=== PATIENT | female | born 1950 ===

== ENCOUNTER 2017-03-06 12:44 | Inpatient (IN) | payer OTHER ==
[2017-03-06] MEDS ORDERED: ALTEPLASE 2 MG VIAL IVP PRN (16:32)
[2017-03-06] MEDS ORDERED: ONDANSETRON 4 MG/2 ML VIAL IV PRN (17:21)
[2017-03-06] MEDS ORDERED: HYDROCODONE/APAP 5/325 TAB PO PRN (17:21)
[2017-03-06] MEDS ORDERED: BISACODYL 10 MG SUPP PR PRN (17:48)
[2017-03-06] MEDS ORDERED: SENNOSIDES 1 TAB PO ONE (17:48)
--- NOTE | 2017-03-06 17:56 | PDOREHIP ---
Admission [facility] - Active Diagnoses Comorbidities and Co-existing Conditions at Admission: 82904. None of the Above - Skin Conditions Unhealed Pressure Ulcer (1 or more/Stage 1 or >)-Admission: 0. No
[2017-03-06] MEDS: ENOXAPARIN 40 MG/0.4 ML SYR SC SCH (18:25)
--- NOTE | 2017-03-06 19:01 | GHP ---
[f rep st] HISTORY AND PHYSICAL POST ADMISSION PHYSICIAN EVALUATION AND REHABILITATION TREATMENT PLAN DATE OF ADMISSION: 03/06/2017 DATE OF EVALUATION: March 06, 2017 TIME OF EVALUATION: 1715 hours REFERRING FACILITY: [facility] IMPAIRMENT GROUP: 1.2. DATE OF ONSET: 02/23/2017. REFERRING PHYSICIAN: Dr. Nicholson. CONSULTATIONS: Neurology, Cardiology and possibly Neurosurgery, as well as Pulmonary and Critical Care. REHABLITATION DIAGNOSIS: Cerebrovascular accident. ETIOLOGIC DIAGNOSIS: Right body involvement, left brain. HISTORY OF PRESENT ILLNESS: The patient came to the Emergency Department at [facility] with right-sided weakness. 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 She was treated with IV tPA thrombolysis, after which her right leg regained some movement. The following morning, however, she was more lethargic and had lost the movement she had regained. Further brain imaging revealed hemorrhagic conversions in the left basal ganglia. She had extensive testing regarding the possible etiology of the stroke. CT angiogram was negative for cerebrovascular lesions, and showed no target for revascularization. EKG showed normal sinus rhythm. She had T-wave inversions in the anterior leads. Echocardiogram showed a patent foramen ovale and pulmonary hypertension. Doppler ultrasound study of the veins of the lower extremity did not show deep venous thromboses. A venous CT angiogram of the abdomen was done, which showed no thromboses. However, it did reveal pulmonary emboli bilaterally in the lower lungs, for which an IVC filter was placed. She was followed with serial head CTs, and had no worsening of hemorrhage, and surgery was not indicated. She was begun on atorvastatin and aspirin, and continued on her home dose of lisinopril for history of hypertension. She was participating in physical, occupational, and speech therapies, and stable for transfer to inpatient rehabilitation. OTHER STUDIES AND LABS IN THE HOSPITAL: She had an elevated troponin as high as 0.086, which improved subsequently. CBC done on 03/04/2017 was normal. Metabolic profile revealed normal renal function and electrolytes, but for a low creatinine of 0.53. Albumin was mildly low at 3.0. Abdominal imaging also showed biliary sludge, but there was no elevation of liver enzymes and no abdominal symptoms. PRECAUTIONS: She is a fall risk, and she has aspiration precautions. ACTIVE COMORBIDITIES: She has the tier 3 comorbidities of hemiparesis and morbid obesity. PAST MEDICAL HISTORY: 1. Hypertension. 2. Recent dental extractions of 12 maxillary teeth in preparation for dentures. PRE-HOSPITAL MEDICATIONS: She was taking lisinopril 20 mg per day. ADMISSION MEDICATIONS: 1. Aspirin 81 mg p.o. daily. 2. Atorvastatin 40 mg p.o. at bedtime. 3. Hydrocodone 1 tab p.o. q.6 hours p.r.n. 4. Lisinopril 20 mg p.o. daily. 5. Magnesium oxide 400 mg p.o. daily. 6. Ondansetron 4 mg IV q.4 hours p.r.n. ALLERGIES: Listed to penicillin and to sulfonamide antibiotics. FAMILY HISTORY: Noncontributory. PSYCHOSOCIAL HISTORY: She is a . 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 She has 1 daughter with whom she lives, and there is a 14 -year-old granddaughter in the house as well. She is a nonsmoker. There are no steps to enter the house, and she can live on a single level. REVIEW OF SYSTEMS: She denies pain, chest pain, dyspnea, cough, fevers, chills , recent weight loss or weight gain, nausea or vomiting. She does endorse constipation. She denies dysuria or urinary frequency. She denies loss of sensation. She has weakness in the right upper and lower extremities. She denies joint pain or joint swelling. She denies skin rash or skin breakdown, and otherwise a 10-point review of systems is negative. Her daughter reports that prior to her stroke she was walking 3 - 5 miles every day. She snores, and daughter has noted apneic events. PHYSICAL EXAM: VITAL SIGNS: Blood pressure is 114/67, heart rate is 70, respiratory rate is 16, oxygen saturation is 98% on 1 L, temperature is 36.4 degrees centigrade, her weight is 102.7 kg for a body mass index of 35.5. GENERAL: This is an obese woman, appears her chronologic age, lying in bed, cooperative, and in no acute distress. HEENT: Extraocular movements are intact. Pupils are equal, round, and reactive to light. Mucous membranes are mildly dry. She has a crowded airway Mallampati class 4. She has missing teeth in the left maxilla. There were no mucosal lesions noted. NECK: Supple. HEART: There is a regular rate and rhythm with no murmurs, rubs, or gallops. LUNGS: Clear to auscultation bilaterally. ABDOMEN: Soft, nontender , and nondistended with normoactive bowel sounds. No hepatosplenomegaly, though the exam is somewhat compromised by obesity. EXTREMITIES: There is no cyanosis, clubbing, or edema. Radial and dorsalis pedis pulses are 2+ bilaterally. NEUROLOGIC: She is alert and oriented to her general situation. She is not oriented to the date, month, or year. When reoriented, she does not maintain orientation after several minutes. Cranial nerves 2-12 are grossly intact, but for a left facial droop. Tongue protrudes midline. She tracks bilaterally with her eyes. There is flaccid paralysis of the right upper extremity. She has 2/5 strength at the right hip flexor, 3 to 4/5 strength at the right hamstring and quadriceps, 4/5 strength at the extensor hallucis longus. Her left upper and lower extremities have normal strength. Sensation is intact bilaterally to light touch, and there is no extinction to double simultaneous stimulation. Deep tendon reflexes are 2+ bilaterally at the biceps and patella, and are hypoactive at the Achilles tendons bilaterally. Plantar reflex is upgoing on the right and downgoing on the left. SKIN: There are no decubitus ulcers. Skin is warm and dry. CURRENT LEVEL OF FUNCTION PER THE PRE-ADMISSION SCREEN: Regarding diet, feeding , and swallowing, she was noted to be on a dysphagia 2 diet, and required set up and supervision. Regarding grooming, she required minimal assistance. For bathing, dressing, and toileting she needed assistance. For bed mobility, she required minimal assistance. For transfers, she required moderate assistance with a front-wheeled walker and 2 person assist. Balance was poor. Endurance was poor. She was noted to have dysarthria and aphasia. IMPRESSION: The patient is a 66-year-old woman, who suffered a cerebrovascular accident on 02/23/2015 with weakness of the right upper and lower extremities. She had tPA thrombolysis with improvement. However, she had worsening the next morning, and on brain imaging was found to have hemorrhagic transformation. Search for the etiology of the stroke revealed a patent foramen ovale and bilateral pulmonary emboli. There was no deep venous thrombosis found in the lower extremities or pelvis. However, an IVC filter was placed nonetheless. She is appropriate for inpatient rehabilitation with needs for physical, occupational, and speech therapy to optimize her mobility, activities of daily living, swallowing, and cognition. She needs nursing care regarding fall risk, skin integrity, bowel and bladder, medication administration, and medication education. She requires the care of a physician regarding risk for neurologic deterioration and comorbidities including pulmonary emboli, risk for deep venous thrombosis, pulmonary hypertension, and infection risk. Her goal is to complete rehabilitation and then to return home with her family. For a safe discharge, she will need to achieve modified independence to supervision with mobility ADLs, cognition, and swallowing. There is hope she will be able to accomplish medication management, or certainly will have education regarding medication management for her and her family, and neurologic education for her and her family. She will receive therapy with physical therapy, occupational therapy, and speech and language pathology on a modified schedule, 45-60 minutes per day for each discipline on 5-7 days of the week. Her expected duration of stay is 7-21 days. It is anticipated that upon discharge home she will continue to benefit from home health services including speech and language pathology, occupational therapy, and physical therapy. ASSESSMENT AND PLAN: 1. Left basal ganglia cerebrovascular accident with dysphagia, and right upper and lower extremity weakness. Physical and occupational therapies to optimize mobility and activities of daily living. 2. Dysphagia to be assessed and treated per speech and language pathology, along with evaluation regarding cognition. 3. Bilateral pulmonary emboli. She is 11 days out from her hemorrhagic transformation, and would benefit from anticoagulation. This was discussed with neurologist, Dr. Deluca, who was in support of providing anticoagulation. Discussed with her daughter, who remain somewhat cautious. Will initiate enoxaparin at a preventive dose, and will have further discussion regarding indications for full anticoagulation and plan for transition to oral anticoagulation prior to her discharge. She will be monitored for any signs of cardiorespiratory compromise or recurrent thromboses. 4. Hypertension, appears to be adequately controlled on lisinopril, which will be continued. 5. Dyslipidemia. Continue atorvastatin. 6. Constipation. She will be treated with a bowel protocol. 7. Peripherally inserted central catheter line is in place. It will be left in place until it is clear that she is able to take adequate hydration. 8. Pulmonary hypertension, appears to be compensated. Continue to monitor cardiorespiratory status. 9. Likely sleep apnea with crowded airway and history of snoring, and witnessed apneas. Daughter reports that she needs to sleep propped up, and this will be done. She was advised to have a sleep study after discharge, and can consider CPAP or other treatments. 10. Likely coronary artery disease, with lateral T-wave inversions on EKG at [facility], and an elevated troponin. She has been prescribed aspirin, which will be continued along with blood pressure and lipid medications. 11. Loss of teeth due to recent dental extraction. It is likely that she will continue to need a soft diet even as her swallowing improves. 12. Obesity. She will have a dietary consult. It would be in her best interest to be able to lose weight. 13. Code status: She is full code. /[id number]/MODL MTDD
[2017-03-06] MEDS: ATORVASTATIN CALCIUM 40 MG TAB PO SCH (20:07)
[2017-03-07] MEDS: ENOXAPARIN 40 MG/0.4 ML SYR SC SCH (08:10)
[2017-03-07] MEDS: ASPIRIN EC 81 MG TAB PO SCH (08:14)
[2017-03-07] MEDS: MAGNESIUM OXIDE 400 MG TAB PO SCH (08:14)
[2017-03-07] MEDS: POLYETHYLENE GLYCOL 3350 17 GM PKT PO SCH (08:14)
[2017-03-07] MEDS: LISINOPRIL 20 MG TAB PO SCH (08:19)
[2017-03-07] MEDS ORDERED: ENOXAPARIN 40 MG/0.4 ML SYR SC SCH (09:00)
--- NOTE | 2017-03-07 09:04 | SOAPPROG ---
SOAP Progress Note Assessment/Plan: Assessment: * Left basal ganglia cerebrovascular accident with dysphagia, and right upper and lower extremity weakness. Physical and occupational therapies to optimize mobility and activities of daily living. * Dysphagia to be assessed and treated per speech and language pathology, along with evaluation regarding cognition. * Cognitive impairment to be assessed and treated per MANAGER BOOK. * Bilateral pulmonary emboli. She is 11 days out from her hemorrhagic transformation, and would benefit from anticoagulation. This was discussed with neurologist, Dr. Deluca, who was in support of providing anticoagulation. Discussed with her daughter, who remain somewhat cautious. Will initiate enoxaparin at a preventive dose, and will have further discussion regarding indications for full anticoagulation. AHA guideline recommends full anticoagulation if AFib at 2 weeks s/p hemorrhagic transformation, which would be 03/09/17. Will d/w daughter further. Start DOAC if possible. She will be monitored for any signs of cardiorespiratory compromise or recurrent thromboses. * Presence of Lucio catheter, unclear indication. D/C today 03/07/17 and initiate rehabilitation bladder program. Chronic/stable conditions: * Hypertension, appears to be adequately controlled on lisinopril, which will be continued. * Dyslipidemia. Continue atorvastatin. * Constipation. Continue bowel protocol. * Peripherally inserted central catheter line is in place. It will be left in place until it is clear that she is able to take adequate hydration. * Pulmonary hypertension, appears to be compensated. Continue to monitor cardiorespiratory status. * Likely sleep apnea with crowded airway and history of snoring, and witnessed apneas. Daughter reports that she needs to sleep propped up, and this will be done. She was advised to have a sleep study after discharge, and can consider CPAP or other treatments. * Likely coronary artery disease, with lateral T-wave inversions on EKG at [facility], and an elevated troponin. She has been prescribed aspirin, which will be continued along with blood pressure and lipid medications. Will get copy of [facility] EKG. * Loss of teeth due to recent dental extraction. It is likely that she will continue to need a soft diet even as her swallowing improves. * Obesity. She will have a dietary consult. It would be in her best interest to be able to lose weight. 03/07/17 14:05 Subjective: Says she had a difficult night but can't elaborate. Currently w/out complaint. Denies pain, cough, dyspnea, f/c. Objective: Vital Signs Temp Pulse Resp BP Pulse Ox 36.8 C 71 17 115/68 93 03/07/17 05:42 03/07/17 05:42 03/07/17 05:42 03/07/17 08:19 03/07/17 05:42 03/06/17 03/07/17 03/08/17 05:59 05:59 05:59 Intake Total 170 Output Total 650 Balance -480 Physical Exam - Physical Exam General Appearance: WD/WN, alert, no apparent distress, obese Respiratory: normal breath sounds, No crackles, No rhonchi, No wheezing Cardiac/Chest: regular rate, rhythm, No edema Skin: normal color, warm/dry Neuro/Psych: alert, normal mood/affect, oriented x 3, motor weakness (RUE with minimal shoulder shrug, o/w flaccid paralysis. ) ICD10 Worksheet Patient Problems: Problems Problem Status Onset CVA (cerebral vascular accident) Acute
[2017-03-07] MEDS: SENNOSIDES 1 TAB PO SCH ×2 (12:46→20:20)
[2017-03-07] MEDS: ATORVASTATIN CALCIUM 40 MG TAB PO SCH (20:20)
[2017-03-08] MEDS: ENOXAPARIN 40 MG/0.4 ML SYR SC SCH (09:33)
[2017-03-08 09:37] LABS: COLOR AMBER; LEUKOCYTE ESTERASE,URINE NEGATIVE (NEGATIVE); NITRITE,URINE NEGATIVE (NEGATIVE)
[2017-03-08 09:39] LABS: MUCUS 4+ /lpf (NONE-1+)
[2017-03-08 09:52] LABS: ANION GAP 11 mEq/L (8-16); CALCIUM 9.5 mg/dL (8.5-10.4); CARBON DIOXIDE 29 mEq/l (22-31); CHLORIDE 98 mEq/L (97-110); CREATININE 0.5 mg/dL (0.6-1.0); GLOMERULAR FILTRATION RATE > 60; GLUCOSE 104 mg/dL (70-100); POTASSIUM 3.9 mEq/L (3.5-5.2); SODIUM 138 mEq/L (134-144)
[2017-03-08] MEDS: POLYETHYLENE GLYCOL 3350 17 GM PKT PO SCH (10:42)
[2017-03-08] MEDS: MAGNESIUM OXIDE 400 MG TAB PO SCH (10:43)
[2017-03-08] MEDS: ASPIRIN EC 81 MG TAB PO SCH (10:43)
[2017-03-08] MEDS: SENNOSIDES 1 TAB PO SCH ×2 (10:43→21:16)
[2017-03-08] MEDS: LISINOPRIL 20 MG TAB PO SCH (10:48)
--- NOTE | 2017-03-08 12:29 | SOAPPROG ---
SOAP Progress Note Assessment/Plan: Assessment: * Left basal ganglia cerebrovascular accident with dysphagia, and right upper and lower extremity weakness. Physical and occupational therapies to optimize mobility and activities of daily living. * Dysphagia to be assessed and treated per speech and language pathology, along with evaluation regarding cognition. * Cognitive impairment to be assessed and treated per CONTINUOUS IMPROVEMENT FACILITATOR. * Bilateral pulmonary emboli. On admission 03/06/17 she was 11 days out from her hemorrhagic transformation, and would benefit from anticoagulation. This was discussed with neurologist, Dr. Fine, who was in support of providing anticoagulation. Discussed with her daughter, who remains somewhat cautious. Will initiate enoxaparin at a preventive dose, and will have further discussion regarding indications for full anticoagulation. AHA guideline recommends full anticoagulation if AFib at 2 weeks s/p hemorrhagic transformation, which would be 03/09/17. Will d/w daughter further. Start DOAC if possible. She will be monitored for any signs of cardiorespiratory compromise or recurrent thromboses. * Presence of Lucio catheter, unclear indication. D/C today 03/08/17 and initiate rehabilitation bladder program. * Dehydration with elevated BUN/cr ratio, concentrated urine, low PO intake and low urine output. Hydrate IV today 03/08/17 with NS 1000 cc at 75 cc/hr. Chronic/stable conditions: * Hypertension, appears to be adequately controlled on lisinopril, which will be continued. * Dyslipidemia. Continue atorvastatin. * Constipation. Continue bowel protocol. * Peripherally inserted central catheter line is in place. It will be left in place until it is clear that she is able to take adequate hydration. * Pulmonary hypertension, appears to be compensated. Continue to monitor cardiorespiratory status. * Likely sleep apnea with crowded airway and history of snoring, and witnessed apneas. Daughter reports that she needs to sleep propped up, and this will be done. She was advised to have a sleep study after discharge, and can consider CPAP or other treatments. * Likely coronary artery disease, with lateral T-wave inversions on EKG at [facility], and an elevated troponin. She has been prescribed aspirin, which will be continued along with blood pressure and lipid medications. Will get copy of [facility] EKG. * Loss of teeth due to recent dental extraction. It is likely that she will continue to need a soft diet even as her swallowing improves. * Obesity. She will have a dietary consult. It would be in her best interest to be able to lose weight. 03/08/17 12:26 Subjective: Nocomplaints. Says she does not feel thirsty. Has not noted improvement with R arm movement. No f/c, cough/dyspnea, dysuria. Objective: Vital Signs Temp Pulse Resp BP Pulse Ox 36.8 C 69 17 94/65 L 96 03/08/17 06:27 03/08/17 06:27 03/08/17 06:27 03/08/17 10:48 03/08/17 06:27 Laboratory Results 03/08/17 06:10 03/07/17 03/08/17 03/09/17 05:59 05:59 05:59 Intake Total 170 456 120 Output Total 650 200 Balance -480 456 -80 Physical Exam - Physical Exam General Appearance: WD/WN, alert, no apparent distress, obese Respiratory: normal breath sounds, No crackles, No rhonchi, No wheezing Cardiac/Chest: regular rate, rhythm, No edema Skin: normal color, warm/dry Neuro/Psych: alert, normal mood/affect, motor weakness (RUE flaccid paralysis. Max A of 1 to arise to seated from supine.) ICD10 Worksheet Patient Problems: Problems Problem Status Onset CVA (cerebral vascular accident) Acute
[2017-03-08] MEDS: NS 1,000 ML IV SCH (13:44)
[2017-03-08] MEDS: ATORVASTATIN CALCIUM 40 MG TAB PO SCH (21:16)
[2017-03-09] MEDS: NS 1,000 ML IV SCH (03:04)
[2017-03-09] MEDS: ENOXAPARIN 40 MG/0.4 ML SYR SC SCH (10:04)
[2017-03-09] MEDS: ASPIRIN EC 81 MG TAB PO SCH ×2 (10:04→10:10)
[2017-03-09] MEDS: MAGNESIUM OXIDE 400 MG TAB PO SCH (10:06)
[2017-03-09] MEDS: SENNOSIDES 1 TAB PO SCH ×2 (10:06→20:36)
[2017-03-09] MEDS: POLYETHYLENE GLYCOL 3350 17 GM PKT PO SCH (10:07)
--- NOTE | 2017-03-09 10:27 | SOAPPROG ---
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 Initial FIM 39. Mod - max A transfers, low endurance. Mod A UB dressing, max A LB. RUE movement returning distal > proximal. Physical and occupational therapies to optimize mobility and activities of daily living. * Dysphagia to be assessed and treated per speech and language pathology, along with evaluation regarding cognition. * Cognitive impairment. Redced comprehension, expression, orientation and memory. Continue CANDLE POURER. * Bilateral pulmonary emboli. On admission 03/06/17 she was 11 days out from her hemorrhagic transformation, and would benefit from anticoagulation. This was discussed with neurologist, Dr. Fine, who was in support of providing anticoagulation. Discussed with her daughter. AHA guideline recommends full anticoagulation if AFib at 2 weeks s/p hemorrhagic transformation, which would be 03/09/17. Will increase enoxaparin to treatment dose and initiate warfarin . * Calf pain. US today 03/09/17 shows extensive bilateral LE DVTs. Continue anticoagulation plan. * Presence of Lucio catheter, unclear indication. D/C'd 03/08/17 and initiated rehabilitation bladder program. Nursing reports she's voiding 03/09/17. * Dehydration with elevated BUN/cr ratio, concentrated urine, low PO intake (25 - 50%) and low urine output. Hydrate IV 03/08 - 03/09/17 with NS 1000 cc at 75 cc/ hr. Keep PICC for now until she's taking adequate PO hydration. * Pulmonary hypertension. Developed edema with IV hydration. Initiate daily weights 03/09/17. Continue to monitor cardiorespiratory status. Continue O2. Chronic/stable conditions: * Hypertension, appears to be adequately controlled on lisinopril, which will be continued. * Dyslipidemia. Continue atorvastatin. * Constipation. Responding to bowel protocol. * Likely sleep apnea with crowded airway and history of snoring, and witnessed apneas. Daughter reports that she needs to sleep propped up, and this will be done. She was advised to have a sleep study after discharge, and can consider CPAP or other treatments. * Likely coronary artery disease, with lateral T-wave inversions on EKG at [facility], and an elevated troponin. She has been prescribed aspirin, which will be continued along with blood pressure and lipid medications. Copy of [facility] EKG reviewed, in paper chart. * Loss of teeth due to recent dental extraction. It is likely that she will continue to need a soft diet even as her swallowing improves. * Obesity. She will have a dietary consult. It would be in her best interest to be able to lose weight. Attended staffing, 15 min. D/W case mgmt, nursing, PT, OT, CANDLE POURER, letterset press set up operator, pharmacy. Live in [facility] home with dtr & grdtr, 5 AUGUST. Goal to discharge to home, 04/06/17. 03/09/17 12:22 03/09/17 16:52 Subjective: No complaints. Feels better after hydration overnight. Objective: Vital Signs Temp Pulse Resp BP Pulse Ox 37.0 C 67 18 102/65 93 03/09/17 06:49 03/09/17 06:49 03/09/17 06:49 03/09/17 06:49 03/09/17 06:49 Laboratory Results 03/08/17 06:10 03/08/17 03/09/17 03/10/17 05:59 05:59 05:59 Intake Total 456 1845 399 Output Total 300 Balance 456 1545 399 - Time Spent With Patient Time Spent With Patient: Greater than 35 minutes floor time today, including more than 50% of time in coordination of care during staffing meeting, and counseling patient including phone call to dtr. Physical Exam - Physical Exam General Appearance: WD/WN, alert, no apparent distress, obese Respiratory: normal breath sounds, No crackles, No rhonchi, No wheezing Cardiac/Chest: regular rate, rhythm, edema (1+ B LE) Skin: normal color, warm/dry Neuro/Psych: alert, normal mood/affect, motor weakness (RUE flaccid paralysis) ICD10 Worksheet Patient Problems: Problems Problem Status Onset CVA (cerebral vascular accident) Acute
[2017-03-09] MEDS: LISINOPRIL 20 MG TAB PO SCH (10:48)
[2017-03-09 14:14] LABS: % IMMATURE GRANULYOCYTES 0.4 % (0.0-1.1); ABSOLUTE IMMATURE GRANULOCYTES 0.04 10^3/uL (0.00-0.10); ADD DIFF? NO; ADD MORPH? NO; ADD SCAN? NO; ATYPICAL LYMPHOCYTE FLAG 0 (0-99); FRAGMENT RBC FLAG 0 (0-99); HEMATOCRIT 35.1 % (38.0-47.0); HEMOGLOBIN 11.4 g/dL (12.6-16.3); LEFT SHIFT FLG 10 (0-99); LIPEMIA HEMOLYSIS FLAG 80 (0-99); MEAN CELL HEMOGLOBIN 30.3 pg (27.9-34.1); MEAN CELL HEMOGLOBIN CONCENTR. 32.5 g/dL (32.4-36.7); MEAN CELL VOLUME 93.4 fL (81.5-99.8); MEAN PLATELET VOLUME 11.8 fL (8.7-11.7); PLATELET CLUMPS FLAG 0 (0-99); PLATELET COUNT 267 10^3/uL (150-400); RED BLOOD CELL COUNT 3.76 10^6/uL (4.18-5.33)
[2017-03-09 14:30] LABS: ANION GAP 11 mEq/L (8-16); CALCIUM 9.3 mg/dL (8.5-10.4); CARBON DIOXIDE 29 mEq/l (22-31); CHLORIDE 98 mEq/L (97-110); CREATININE 0.5 mg/dL (0.6-1.0); GLOMERULAR FILTRATION RATE > 60; GLUCOSE 83 mg/dL (70-100); POTASSIUM 4.1 mEq/L (3.5-5.2); SODIUM 138 mEq/L (134-144)
[2017-03-09 14:56] LABS: INR 1.2 (0.83-1.16); PROTIME(PATIENT) 15.2 SEC (12.0-15.0)
[2017-03-09] MEDS ORDERED: WARFARIN SODIUM 5 MG TAB PO ONE (16:00)
[2017-03-09] MEDS: ENOXAPARIN 100 MG/ML SYR SC SCH (20:36)
[2017-03-09] MEDS: ATORVASTATIN CALCIUM 40 MG TAB PO SCH (20:36)
[2017-03-10 07:00] LABS: INR 1.15 (0.83-1.16); PROTIME(PATIENT) 14.7 SEC (12.0-15.0)
--- NOTE | 2017-03-10 07:23 | SOAPPROG ---
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 Initial FIM 39. Mod - max A transfers, low endurance. Mod A UB dressing, max A LB. RUE movement returning distal > proximal. Physical and occupational therapies to optimize mobility and activities of daily living. * Dysphagia to be assessed and treated per speech and language pathology, along with evaluation regarding cognition. * Cognitive impairment. Redced comprehension, expression, orientation and memory. Continue TAILERCPA. * Bilateral pulmonary emboli. On admission 03/06/17 she was 11 days out from her hemorrhagic transformation, and would benefit from anticoagulation. This was discussed with neurologist, Dr. Fine, who was in support of providing anticoagulation. Discussed with her daughter. AHA guideline recommends full anticoagulation if AFib at 2 weeks s/p hemorrhagic transformation, which would be 03/09/17. Will increase enoxaparin to treatment dose and initiate warfarin . * Calf pain. US today 03/09/17 shows extensive bilateral LE DVTs. Continue anticoagulation plan. * Presence of Lucio catheter, unclear indication. D/C'd 03/08/17 and initiated rehabilitation bladder program. Nursing reports she's voiding 03/09/17. * Dehydration with elevated BUN/cr ratio, concentrated urine, low PO intake (25 - 50%) and low urine output. Hydrate IV 03/08 - 03/09/17 with NS 1000 cc at 75 cc/ hr. Keep PICC for now until she's taking adequate PO hydration. * Pulmonary hypertension. Developed edema with IV hydration. Initiate daily weights 03/09/17. Continue to monitor cardiorespiratory status. Continue O2. Chronic/stable conditions: * Hypertension, appears to be adequately controlled on lisinopril, which will be continued. * Dyslipidemia. Continue atorvastatin. * Constipation. Responding to bowel protocol. * Likely sleep apnea with crowded airway and history of snoring, and witnessed apneas. Daughter reports that she needs to sleep propped up, and this will be done. She was advised to have a sleep study after discharge, and can consider CPAP or other treatments. * Likely coronary artery disease, with lateral T-wave inversions on EKG at [facility], and an elevated troponin. She has been prescribed aspirin, which will be continued along with blood pressure and lipid medications. Copy of [facility] EKG reviewed, in paper chart. * Loss of teeth due to recent dental extraction. It is likely that she will continue to need a soft diet even as her swallowing improves. * Obesity. She will have a dietary consult. It would be in her best interest to be able to lose weight. Lives in ranch home with dtr & grdtr, 5 AUGUST. Goal to discharge to home, . Subjective: No events. No complaints this a.m. Slept well, no pain or SOB. Objective: Vital Signs Temp Pulse Resp BP Pulse Ox 36.8 C 84 18 109/72 96 03/10/17 05:49 03/10/17 05:49 03/10/17 05:49 03/10/17 05:49 03/10/17 05:49 Laboratory Results 03/09/17 11:35 03/09/17 11:35 03/09/17 03/10/17 03/11/17 05:59 05:59 05:59 Intake Total 1845 2219 200 Output Total 300 650 Balance 1545 1569 200 PT 14.7 SEC (12.0-15.0) 03/10/17 05:20 INR 1.15 (0.83-1.16) 03/10/17 05:20 - Pending Discharge Pending Discharge Within 24 Hours: No Pending Discharge Within 48 Hours: No Physical Exam - Physical Exam General Appearance: alert, no apparent distress EENT: No hearing deficit Neck: supple Respiratory: rales (left trace), No respiratory distress, No wheezing Cardiac/Chest: regular rate, rhythm Abdomen: non-tender, soft Skin: warm/dry Extremities: pedal edema (2+) Neuro/Psych: alert, normal mood/affect, motor weakness, speech abnormalities ICD10 Worksheet Patient Problems: Problems Problem Status Onset CVA (cerebral vascular accident) Acute
[2017-03-10] MEDS: ENOXAPARIN 100 MG/ML SYR SC SCH ×2 (09:05→19:49)
[2017-03-10] MEDS: POLYETHYLENE GLYCOL 3350 17 GM PKT PO SCH (09:34)
[2017-03-10] MEDS: SENNOSIDES 1 TAB PO SCH ×2 (09:36→19:50)
[2017-03-10] MEDS: MAGNESIUM OXIDE 400 MG TAB PO SCH (09:36)
[2017-03-10] MEDS: LISINOPRIL 20 MG TAB PO SCH (09:36)
[2017-03-10] MEDS: ATORVASTATIN CALCIUM 40 MG TAB PO SCH (19:50)
--- NOTE | 2017-03-11 07:44 | SOAPPROG ---
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 Initial FIM 39. Mod - max A transfers, low endurance. Mod A UB dressing, max A LB. RUE movement returning distal > proximal. Physical and occupational therapies to optimize mobility and activities of daily living. * Dysphagia to be assessed and treated per speech and language pathology, along with evaluation regarding cognition. * Cognitive impairment. Redced comprehension, expression, orientation and memory. 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 * Bilateral pulmonary emboli. On admission 03/06/17 she was 11 days out from her hemorrhagic transformation, and would benefit from anticoagulation. This was discussed with neurologist, Dr. Fine, who was in support of providing anticoagulation. Discussed with her daughter. AHA guideline recommends full anticoagulation if AFib at 2 weeks s/p hemorrhagic transformation, which would be 03/09/17. Will increase enoxaparin to treatment dose and initiate warfarin . * Calf pain. US today 03/09/17 shows extensive bilateral LE DVTs. Continue anticoagulation plan. * Presence of Lucio catheter, unclear indication. D/C'd 03/08/17 and initiated rehabilitation bladder program. Nursing reports she's voiding 03/09/17. * Dehydration with elevated BUN/cr ratio, concentrated urine, low PO intake (25 - 50%) and low urine output. Hydrate IV 03/08 - 03/09/17 with NS 1000 cc at 75 cc/ hr. Keep PICC for now until she's taking adequate PO hydration. * Pulmonary hypertension. Developed edema with IV hydration. Initiate daily weights 03/09/17. Continue to monitor cardiorespiratory status. Continue O2. Chronic/stable conditions: * Hypertension, appears to be adequately controlled on lisinopril, which will be continued. * Dyslipidemia. Continue atorvastatin. * Constipation. Responding to bowel protocol. * Likely sleep apnea with crowded airway and history of snoring, and witnessed apneas. Daughter reports that she needs to sleep propped up, and this will be done. She was advised to have a sleep study after discharge, and can consider CPAP or other treatments. * Likely coronary artery disease, with lateral T-wave inversions on EKG at [facility], and an elevated troponin. She has been prescribed aspirin, which will be continued along with blood pressure and lipid medications. Copy of [facility] EKG reviewed, in paper chart. * Loss of teeth due to recent dental extraction. It is likely that she will continue to need a soft diet even as her swallowing improves. * Obesity. She will have a dietary consult. It would be in her best interest to be able to lose weight. Lives in ranch home with dtr & grdtr, 5 AUGUST. Goal to discharge to home, . Subjective: Increased calf pain with dependency in therapy late yesterday p.m. Much improved this a.m. with overnight recumbency. No fever,chills, SOB, CP. Objective: Vital Signs Temp Pulse Resp BP Pulse Ox 36.8 C 73 17 101/58 L 93 03/11/17 06:27 03/11/17 06:27 03/11/17 06:27 03/11/17 06:27 03/11/17 06:27 Laboratory Results 03/09/17 11:35 03/09/17 11:35 03/10/17 03/11/17 03/12/17 05:59 05:59 05:59 Intake Total 2219 1108 Output Total 650 675 Balance 1569 433 PT 14.7 SEC (12.0-15.0) 03/10/17 05:20 INR 1.15 (0.83-1.16) 03/10/17 05:20 Laboratory Tests 03/09/17 03/10/17 13:48 05:20 INR 1.20 H 1.15 - Pending Discharge Pending Discharge Within 24 Hours: No Pending Discharge Within 48 Hours: No Physical Exam - Physical Exam General Appearance: alert, no apparent distress Neck: supple Respiratory: lungs clear Cardiac/Chest: regular rate, rhythm Abdomen: normal bowel sounds, non-tender Skin: warm/dry Extremities: pedal edema (3+ symmetric, no erythema) Neuro/Psych: alert, normal mood/affect, motor weakness, cognition abnormalities ICD10 Worksheet Patient Problems: Problems Problem Status Onset CVA (cerebral vascular accident) Acute
[2017-03-11] MEDS: POLYETHYLENE GLYCOL 3350 17 GM PKT PO SCH (09:13)
[2017-03-11] MEDS: SENNOSIDES 1 TAB PO SCH ×2 (09:15→21:17)
[2017-03-11] MEDS: ASPIRIN EC 81 MG TAB PO SCH (09:15)
[2017-03-11] MEDS: MAGNESIUM OXIDE 400 MG TAB PO SCH (09:15)
[2017-03-11] MEDS: ENOXAPARIN 100 MG/ML SYR SC SCH ×2 (09:15→21:17)
[2017-03-11] MEDS: LISINOPRIL 20 MG TAB PO SCH (11:48)
[2017-03-11] MEDS: ATORVASTATIN CALCIUM 40 MG TAB PO SCH (21:17)
[2017-03-12] MEDS: ASPIRIN EC 81 MG TAB PO SCH (08:22)
[2017-03-12] MEDS: LISINOPRIL 20 MG TAB PO SCH (08:23)
[2017-03-12] MEDS: POLYETHYLENE GLYCOL 3350 17 GM PKT PO SCH (08:23)
[2017-03-12] MEDS: MAGNESIUM OXIDE 400 MG TAB PO SCH (08:23)
[2017-03-12] MEDS: SENNOSIDES 1 TAB PO SCH ×2 (08:24→21:37)
[2017-03-12] MEDS: ENOXAPARIN 100 MG/ML SYR SC SCH ×2 (09:03→20:57)
--- NOTE | 2017-03-12 15:37 | SOAPPROG ---
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 Initial FIM 39. Mod - max A transfers, low endurance. Mod A UB dressing, max A LB. RUE movement returning distal > proximal. Physical and occupational therapies to optimize mobility and activities of daily living. * Dysphagia to be assessed and treated per speech and language pathology, along with evaluation regarding cognition. * Cognitive impairment. Redced comprehension, expression, orientation and memory. 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 * Bilateral pulmonary emboli. On admission 03/06/17 she was 11 days out from her hemorrhagic transformation, and would benefit from anticoagulation. This was discussed with neurologist, Dr. Fine, who was in support of providing anticoagulation. Discussed with her daughter. AHA guideline recommends full anticoagulation if AFib at 2 weeks s/p hemorrhagic transformation, which would be 03/09/17. Will increase enoxaparin to treatment dose and initiate warfarin . * Calf pain. US today 03/09/17 shows extensive bilateral LE DVTs. Continue anticoagulation plan. Pain improving * Presence of Lucio catheter, unclear indication. D/C'd 03/08/17 and initiated rehabilitation bladder program. Nursing reports she's voiding 03/09/17. * Dehydration with elevated BUN/cr ratio, concentrated urine, low PO intake (25 - 50%) and low urine output. Hydrate IV 03/08 - 03/09/17 with NS 1000 cc at 75 cc/ hr. Keep PICC for now until she's taking adequate PO hydration. * Pulmonary hypertension. Developed edema with IV hydration. Initiate daily weights 03/09/17. Continue to monitor cardiorespiratory status. Continue O2. Chronic/stable conditions: * Hypertension, appears to be adequately controlled on lisinopril, which will be continued. * Dyslipidemia. Continue atorvastatin. * Constipation. Responding to bowel protocol. * Likely sleep apnea with crowded airway and history of snoring, and witnessed apneas. Daughter reports that she needs to sleep propped up, and this will be done. She was advised to have a sleep study after discharge, and can consider CPAP or other treatments. * Likely coronary artery disease, with lateral T-wave inversions on EKG at [facility], and an elevated troponin. She has been prescribed aspirin, which will be continued along with blood pressure and lipid medications. Copy of [facility] EKG reviewed, in paper chart. * Loss of teeth due to recent dental extraction. It is likely that she will continue to need a soft diet even as her swallowing improves. * Obesity. She will have a dietary consult. It would be in her best interest to be able to lose weight. Lives in ranch home with dtr & grdtr, 5 AUGUST. Goal to discharge to home, . Subjective: No events. Improving LE pain complaints, denies SOB/CP/lightheadedness. Objective: Vital Signs Temp Pulse Resp BP Pulse Ox 36.5 C 64 13 90/46 L 94 03/12/17 07:38 03/12/17 14:29 03/12/17 07:38 03/12/17 14:29 03/12/17 07:38 Laboratory Results 03/09/17 11:35 03/09/17 11:35 03/11/17 03/12/17 03/13/17 05:59 05:59 05:59 Intake Total 1108 960 772 Output Total 675 725 Balance 433 235 772 PT 14.7 SEC (12.0-15.0) 03/10/17 05:20 INR 1.15 (0.83-1.16) 03/10/17 05:20 - Pending Discharge Pending Discharge Within 24 Hours: No Pending Discharge Within 48 Hours: No Physical Exam - Physical Exam General Appearance: alert, no apparent distress Neck: supple Respiratory: lungs clear, normal breath sounds Cardiac/Chest: regular rate, rhythm Abdomen: non-tender, soft Skin: warm/dry Extremities: pedal edema (2+ bilateral) Neuro/Psych: alert, normal mood/affect, oriented x 3, motor weakness, speech abnormalities ICD10 Worksheet Patient Problems: Problems Problem Status Onset CVA (cerebral vascular accident) Acute
[2017-03-12] MEDS ORDERED: WARFARIN SODIUM 5 MG TAB PO ONE (16:00)
[2017-03-12] MEDS: ATORVASTATIN CALCIUM 40 MG TAB PO SCH (20:57)
[2017-03-13 07:59] LABS: INR 1.19 (0.83-1.16); PROTIME(PATIENT) 15.1 SEC (12.0-15.0)
[2017-03-13] MEDS ORDERED: ASPIRIN 81 MG CHEWABLE TAB ONE (09:39)
[2017-03-13] MEDS: LISINOPRIL 20 MG TAB PO SCH (09:41)
[2017-03-13] MEDS: POLYETHYLENE GLYCOL 3350 17 GM PKT PO SCH (09:42)
[2017-03-13] MEDS: MAGNESIUM OXIDE 400 MG TAB PO SCH (09:42)
[2017-03-13] MEDS: ENOXAPARIN 100 MG/ML SYR SC SCH ×2 (09:42→20:39)
[2017-03-13] MEDS: ASPIRIN 81 MG CHEWABLE TAB PO SCH (10:00)
[2017-03-13] MEDS: SENNOSIDES 1 TAB PO SCH ×2 (10:05→22:23)
[2017-03-13] MEDS ORDERED: LISINOPRIL 20 MG TAB PO SCH (10:18)
[2017-03-13] MEDS: ASPIRIN EC 81 MG TAB PO SCH (10:52)
--- NOTE | 2017-03-13 11:28 | SOAPPROG ---
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 Initial FIM 39. Mod - max A transfers, low endurance. Mod A UB dressing, max A LB. RUE movement returning distal > proximal. Physical and occupational therapies to optimize mobility and activities of daily living. * Dysphagia to be assessed and treated per speech and language pathology, along with evaluation regarding cognition. * Cognitive impairment. Reduced comprehension, expression, orientation and memory. 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 * Bilateral pulmonary emboli. On admission 03/06/17 she was 11 days out from her hemorrhagic transformation, and would benefit from anticoagulation. This was discussed with neurologist, Dr. Fine, who was in support of providing anticoagulation. Discussed with her daughter. AHA guideline recommends full anticoagulation if AFib at 2 weeks s/p hemorrhagic transformation, which would be 03/09/17. Increased enoxaparin to treatment dose and initiated warfarin ; pharmacy to dose. * Calf pain. US 03/09/17 shows extensive bilateral LE DVTs. Continue anticoagulation plan. * Hypertension. BP running low. Reduce lisinopril from 20 mg QD to 10 mg QD starting 03/14/17. * Edema. Due to DVTs +/- contribution of pulmonary HTN. Continue compression stockings. Consider diuretic if BP improves. Continue daily weights. * Presence of Lucio catheter, unclear indication. D/C'd 03/08/17 and initiated rehabilitation bladder program. Nursing reports she's voiding 03/09/17. * Dehydration with elevated BUN/cr ratio, concentrated urine, low PO intake (25 - 50%) and low urine output. Hydrate IV 03/08 - 03/09/17 with NS 1000 cc at 75 cc/ hr. Keep PICC for now until she's taking adequate PO hydration. Chronic/stable conditions: * Dyslipidemia. Continue atorvastatin. * Constipation. Responding to bowel protocol. * Likely sleep apnea with crowded airway and history of snoring, and witnessed apneas. Daughter reports that she needs to sleep propped up, and this will be done. She was advised to have a sleep study after discharge, and can consider CPAP or other treatments. * Likely coronary artery disease, with lateral T-wave inversions on EKG at [facility], and an elevated troponin. She has been prescribed aspirin, which will be continued along with blood pressure and lipid medications. Copy of [facility] EKG reviewed, in paper chart. * Loss of teeth due to recent dental extraction. It is likely that she will continue to need a soft diet even as her swallowing improves. * Obesity. She will have a dietary consult. It would be in her best interest to be able to lose weight. Lives in ranch home with dtr & grdtr, 5 AUGUST. Goal to discharge to home, . 03/13/17 11:22 Subjective: No complaints. Denies leg pain or dyspnea. Objective: Vital Signs Temp Pulse Resp BP Pulse Ox 36.8 C 63 18 103/61 94 03/13/17 06:23 03/13/17 06:23 03/13/17 06:23 03/13/17 09:41 03/13/17 06:23 Laboratory Results 03/09/17 11:35 03/09/17 11:35 03/12/17 03/13/17 03/14/17 05:59 05:59 05:59 Intake Total 960 1416 400 Output Total 725 1100 200 Balance 235 316 200 PT 15.1 SEC (12.0-15.0) H 03/13/17 06:00 INR 1.19 (0.83-1.16) H 03/13/17 06:00 Physical Exam - Physical Exam General Appearance: WD/WN, alert, no apparent distress, obese Respiratory: normal breath sounds, No crackles, No rhonchi, No wheezing Cardiac/Chest: regular rate, rhythm, edema (3+ B LE) Skin: normal color, warm/dry Neuro/Psych: alert, normal mood/affect, oriented x 3, motor weakness (RUE has limited motion at the elbow, assisted by OT.) ICD10 Worksheet Patient Problems: Problems Problem Status Onset CVA (cerebral vascular accident) Acute
[2017-03-13] MEDS ORDERED: WARFARIN SODIUM 5 MG TAB PO ONE (16:00)
[2017-03-13] MEDS: ATORVASTATIN CALCIUM 40 MG TAB PO SCH (20:40)
[2017-03-14] MEDS: ENOXAPARIN 100 MG/ML SYR SC SCH ×2 (08:07→21:46)
[2017-03-14] MEDS: MAGNESIUM OXIDE 400 MG TAB PO SCH (08:08)
[2017-03-14] MEDS: ASPIRIN 81 MG CHEWABLE TAB PO SCH (08:08)
[2017-03-14] MEDS: POLYETHYLENE GLYCOL 3350 17 GM PKT PO SCH (08:11)
[2017-03-14] MEDS: SENNOSIDES 1 TAB PO SCH ×2 (08:11→21:46)
[2017-03-14 10:19] LABS: INR 1.37 (0.83-1.16); PROTIME(PATIENT) 16.9 SEC (12.0-15.0)
--- NOTE | 2017-03-14 11:07 | SOAPPROG ---
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 Initial FIM 39 on 03/12/17. Mod - max A transfers , low endurance. Mod A UB dressing, max A LB. RUE movement returning distal > proximal. Physical and occupational therapies to optimize mobility and activities of daily living. * Dysphagia. DD1, NTL. 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 * Cognitive impairment. Reduced comprehension, expression, orientation and memory. 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 * Bilateral pulmonary emboli. On admission 03/06/17 she was 11 days out from her hemorrhagic transformation, and would benefit from anticoagulation. This was discussed with neurologist, Dr. Fine, who was in support of providing anticoagulation. Discussed with her daughter. AHA guideline recommends full anticoagulation if AFib at 2 weeks s/p hemorrhagic transformation, which would be 03/09/17. Increased enoxaparin to treatment dose and initiated warfarin ; pharmacy to dose. * Calf pain. US 03/09/17 shows extensive bilateral LE DVTs. Continue anticoagulation plan. * Hypertension. BP running low. Reduce lisinopril from 20 mg QD to 10 mg QD starting 03/14/17. D/C starting 03/15/17 and observe for elevated BP. * Edema. Due to DVTs +/- contribution of pulmonary HTN. Continue compression stockings. Consider diuretic if BP improves. Continue daily weights. * Presence of Lucio catheter, unclear indication. D/C'd 03/08/17 and initiated rehabilitation bladder program. Nursing reports she's voiding 03/09/17. * Dehydration with elevated BUN/cr ratio, concentrated urine, low PO intake (25 - 50%) and low urine output. Hydrate IV 03/08 - 03/09/17 with NS 1000 cc at 75 cc/ hr. Keep PICC for now until she's taking adequate PO hydration. Chronic/stable conditions: * Dyslipidemia. Continue atorvastatin. * Constipation. Responding to bowel protocol. * Likely sleep apnea with crowded airway and history of snoring, and witnessed apneas. Daughter reports that she needs to sleep propped up, and this will be done. She was advised to have a sleep study after discharge, and can consider CPAP or other treatments. * Likely coronary artery disease, with lateral T-wave inversions on EKG at [facility], and an elevated troponin. She has been prescribed aspirin, which will be continued along with blood pressure and lipid medications. Copy of [facility] EKG reviewed, in paper chart. * Loss of teeth due to recent dental extraction. It is likely that she will continue to need a soft diet even as her swallowing improves. * Obesity. She will have a dietary consult. It would be in her best interest to be able to lose weight. Lives in ranch home with dtr & grdtr, 5 AUGUST. Goal to discharge to home, . 03/14/17 12:21 Subjective: No complaints. Not in pain, sleeping well, no cough/dyspnea, f/c. Objective: Vital Signs Temp Pulse Resp BP Pulse Ox 36.9 C 65 20 100/60 90 L 03/14/17 06:14 03/14/17 06:14 03/14/17 06:14 03/14/17 08:08 03/14/17 06:14 Laboratory Results 03/09/17 11:35 03/09/17 11:35 03/13/17 03/14/17 03/15/17 05:59 05:59 05:59 Intake Total 1416 940 Output Total 1100 700 Balance 316 240 PT 15.1 SEC (12.0-15.0) H 03/13/17 06:00 INR 1.19 (0.83-1.16) H 03/13/17 06:00 Physical Exam - Physical Exam General Appearance: WD/WN, alert, no apparent distress Respiratory: normal breath sounds, No crackles, No rhonchi, No wheezing Cardiac/Chest: regular rate, rhythm, edema (2+ B LE) Skin: normal color, warm/dry Neuro/Psych: alert, normal mood/affect, motor weakness (RUE & RLE) ICD10 Worksheet Patient Problems: Problems Problem Status Onset CVA (cerebral vascular accident) Acute
[2017-03-14] MEDS ORDERED: WARFARIN SODIUM 5 MG TAB PO ONE (16:00)
[2017-03-14] MEDS: ATORVASTATIN CALCIUM 40 MG TAB PO SCH (21:45)
[2017-03-15 07:50] LABS: INR 1.46 (0.83-1.16); PROTIME(PATIENT) 17.7 SEC (12.0-15.0)
[2017-03-15] MEDS: MAGNESIUM OXIDE 400 MG TAB PO SCH (08:17)
[2017-03-15] MEDS: ENOXAPARIN 100 MG/ML SYR SC SCH ×2 (08:17→19:36)
[2017-03-15] MEDS: ASPIRIN 81 MG CHEWABLE TAB PO SCH (08:17)
[2017-03-15] MEDS: POLYETHYLENE GLYCOL 3350 17 GM PKT PO SCH (08:18)
[2017-03-15] MEDS: SENNOSIDES 1 TAB PO SCH ×2 (08:18→19:39)
--- NOTE | 2017-03-15 10:25 | SOAPPROG ---
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 Denies any depression, but does endorse low appetite and desire to lose weight. Speech therapy is concerned about her oral intake. Ordering a dietitian. She did well on her video fluoroscopic swallow study yesterday (reviewed images personally, no significant difference in the radiology read), advanced to dysphasia 2 diet, thin liquids, but was noted to have some cough and decreased back to nectar thick liquids. Noted to have oral and pharyngeal dysphagia. Neurologically stable, functionally improving. No bleeding. Remainder of plan below unchanged. INR is gradually trending upward, not yet at goal. 1.46 today. All medical issues are new to this provider. 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 Initial FIM 39 on 03/12/17. Mod - max A transfers , low endurance. Mod A UB dressing, max A LB. RUE movement returning distal > proximal. Physical and occupational therapies to optimize mobility and activities of daily living. * Dysphagia. DD1, NTL. Continue SYSTEMS TECHNOLOGIST. * Cognitive impairment. Reduced comprehension, expression, orientation and memory. Continue SYSTEMS TECHNOLOGIST. * Bilateral pulmonary emboli. On admission 03/06/17 she was 11 days out from her hemorrhagic transformation, and would benefit from anticoagulation. This was discussed with neurologist, Dr. Fine, who was in support of providing anticoagulation. Discussed with her daughter. AHA guideline recommends full anticoagulation if AFib at 2 weeks s/p hemorrhagic transformation, which would be 03/09/17. Increased enoxaparin to treatment dose and initiated warfarin ; pharmacy to dose. * Calf pain. US 03/09/17 shows extensive bilateral LE DVTs. Continue anticoagulation plan. * Hypertension. BP running low. Reduce lisinopril from 20 mg QD to 10 mg QD starting 03/14/17. D/C starting 03/15/17 and observe for elevated BP. * Edema. Due to DVTs +/- contribution of pulmonary HTN. Continue compression stockings. Consider diuretic if BP improves. Continue daily weights. * Presence of Lucio catheter, unclear indication. D/C'd 03/08/17 and initiated rehabilitation bladder program. Nursing reports she's voiding 03/09/17. * Dehydration with elevated BUN/cr ratio, concentrated urine, low PO intake (25 - 50%) and low urine output. Hydrate IV 03/08 - 03/09/17 with NS 1000 cc at 75 cc/ hr. Keep PICC for now until she's taking adequate PO hydration. Chronic/stable conditions: * Dyslipidemia. Continue atorvastatin. * Constipation. Responding to bowel protocol. * Likely sleep apnea with crowded airway and history of snoring, and witnessed apneas. Daughter reports that she needs to sleep propped up, and this will be done. She was advised to have a sleep study after discharge, and can consider CPAP or other treatments. * Likely coronary artery disease, with lateral T-wave inversions on EKG at [facility], and an elevated troponin. She has been prescribed aspirin, which will be continued along with blood pressure and lipid medications. Copy of [facility] EKG reviewed, in paper chart. * Loss of teeth due to recent dental extraction. It is likely that she will continue to need a soft diet even as her swallowing improves. * Obesity. She will have a dietary consult. It would be in her best interest to be able to lose weight. Lives in ranch home with dtr & grdtr, 5 AUGUST. Goal to discharge to home, . 03/15/17 10:22 Subjective: CC: anticoagualtion, dysphagia, No acute events overnight. Patient was working with speech thing with pathology who mentioned that she had some coughing with thin liquids after passing her video fluoroscopic swallow study and being advanced to advanced dysphagia diet and thin liquids. Swallow study noted oral and fragile dysphasia. Patient denies any new numbness, tingling, weakness, headache, bleeding. Notes that she has a poor appetite, speech thing which pathology mentioned that she had poor oral intake. Overall concerned. Patient is otherwise produce [employer] therapies and sleeping well. She was observed to ambulate in the hallway with two-person contact or assist, Walker. Objective: Vital Signs Temp Pulse Resp BP Pulse Ox 36.9 C 73 18 117/70 95 03/15/17 06:02 03/15/17 06:02 03/15/17 06:02 03/15/17 06:02 03/15/17 06:02 Laboratory Results 03/09/17 11:35 03/09/17 11:35 03/14/17 03/15/17 03/16/17 05:59 05:59 05:59 Intake Total 940 1162 240 Output Total 700 200 100 Balance 240 962 140 PT 17.7 SEC (12.0-15.0) H 03/15/17 06:30 INR 1.46 (0.83-1.16) H 03/15/17 06:30 Physical Exam - Physical Exam General Appearance: WD/WN, alert, no apparent distress EENT: No scleral icterus (R), No scleral icterus (L) Respiratory: lungs clear, normal breath sounds, No respiratory distress, No accessory muscle use Cardiac/Chest: normal peripheral pulses, regular rate, rhythm, No edema Skin: normal color, warm/dry, No cyanosis Extremities: swelling (bilateral pedal edema, has compression stockings on. ) Neuro/Psych: alert, normal mood/affect ICD10 Worksheet Patient Problems: Problems Problem Status Onset CVA (cerebral vascular accident) Acute
[2017-03-15] MEDS ORDERED: WARFARIN SODIUM 5 MG TAB PO ONE (16:00)
[2017-03-15] MEDS: ATORVASTATIN CALCIUM 40 MG TAB PO SCH (19:36)
[2017-03-16 07:57] LABS: INR 1.75 (0.83-1.16); PROTIME(PATIENT) 20.5 SEC (12.0-15.0)
[2017-03-16] MEDS: POLYETHYLENE GLYCOL 3350 17 GM PKT PO SCH (08:29)
[2017-03-16] MEDS: MAGNESIUM OXIDE 400 MG TAB PO SCH (08:29)
[2017-03-16] MEDS: ASPIRIN 81 MG CHEWABLE TAB PO SCH (08:29)
[2017-03-16] MEDS: SENNOSIDES 1 TAB PO SCH ×2 (08:29→20:50)
[2017-03-16] MEDS: ENOXAPARIN 100 MG/ML SYR SC SCH ×2 (08:30→20:50)
--- NOTE | 2017-03-16 09:43 | SOAPPROG ---
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 Initial FIM 39 on 03/12/17; gain to 56 on 03/16/17. Min - mod A transfers, low endurance. Needs cueing to initiate. RUE movement returning distal > proximal. Physical and occupational therapies to optimize mobility and activities of daily living. * Cognitive impairment. Reduced comprehension, expression, orientation and memory. Continue HAND BOX FOLDER. * Dysphagia. Advanced to DD2 after VFSS 03/14/17, but still on NTL. Continue HAND BOX FOLDER. * Bilateral pulmonary emboli. On admission 03/06/17 she was 11 days out from her hemorrhagic transformation, and would benefit from anticoagulation. This was discussed with neurologist, Dr. Fine, who was in support of providing anticoagulation. Discussed with her daughter. AHA guideline recommends full anticoagulation if AFib at 2 weeks s/p hemorrhagic transformation, which would be 03/09/17. Increased enoxaparin to treatment dose and initiated warfarin ; pharmacy to dose. * DVTs, extensive, bilateral, on US 03/09/17. Continue anticoagulation plan. * Hypertension. BP running low. Reduced lisinopril from 20 mg QD to 10 mg QD starting 03/14/17. D/C'd 03/15/17 . Observe for elevated BP. * Edema. Due to DVTs +/- contribution of pulmonary HTN. Continue compression stockings. Consider diuretic if BP improves. Continue daily weights. * Dehydration with elevated BUN/cr ratio, concentrated urine, low PO intake (25 - 50%) and low urine output. Hydrated IV 03/08 - 03/09/17 with NS 1000 cc at 75 cc /hr. Keep PICC for now until she's taking adequate PO hydration. Digital Marketing Program Manager following. Chronic/stable conditions: * Dyslipidemia. Continue atorvastatin. * Constipation. Responding to bowel protocol. * Lucio catheter, D/C'd 03/08/17. Voiding well. * Likely sleep apnea with crowded airway and history of snoring, and witnessed apneas. Daughter reports that she needs to sleep propped up, and this will be done. She was advised to have a sleep study after discharge, and can consider CPAP or other treatments. * Likely coronary artery disease, with lateral T-wave inversions on EKG at [facility], and an elevated troponin. She has been prescribed aspirin, which will be continued along with blood pressure and lipid medications. Copy of [facility] EKG reviewed, in paper chart. * Loss of teeth due to recent dental extraction. It is likely that she will continue to need a soft diet even as her swallowing improves. * Obesity. She will have a dietary consult. It would be in her best interest to be able to lose weight. Attended staffing, 15 min. D/W case mgmt, nursing, pharmacy, molding supervisor, PT, OT , HAND BOX FOLDER. Lives in ran home with dtr & grdtr, 5 AUGUST. Goal to discharge to home , 04/06/17. Follow-up Neurosurgery Dr. Odell 03/29/17, with head CT prior to follow-up. 03/16/17 11:51 Subjective: No complaints. Slept well. Denies cough, dyspnea, f/c. Objective: Vital Signs Temp Pulse Resp BP Pulse Ox 36.8 C 62 16 122/71 H 91 L 03/16/17 08:00 03/16/17 08:00 03/16/17 08:00 03/16/17 08:00 03/16/17 08:10 Laboratory Results 03/09/17 11:35 03/09/17 11:35 03/15/17 03/16/17 03/17/17 05:59 05:59 05:59 Intake Total 1162 950 454 Output Total 200 550 150 Balance 962 400 304 PT 20.5 SEC (12.0-15.0) H 03/16/17 06:05 INR 1.75 (0.83-1.16) H 03/16/17 06:05 - Time Spent With Patient Time Spent With Patient: Greater than 35 minutes floortime today, including more than 50% of time in coordination of care during staffing, and counseling patient. Physical Exam - Physical Exam General Appearance: WD/WN, alert, no apparent distress, obese Respiratory: normal breath sounds, No crackles, No rhonchi, No wheezing Cardiac/Chest: regular rate, rhythm, edema (2+ B LE), No JVD Skin: normal color, warm/dry Neuro/Psych: alert, normal mood/affect, abnormal gait ([place], FWW, accompanies by 2 PTs, wheelchair following and managing O2. Short steps, cues to lead left for R leg swing-through.), motor weakness (RLE/RUE) ICD10 Worksheet Patient Problems: Problems Problem Status Onset CVA (cerebral vascular accident) Acute
[2017-03-16] MEDS ORDERED: WARFARIN SODIUM 5 MG TAB PO ONE (16:00)
[2017-03-16] MEDS: ATORVASTATIN CALCIUM 40 MG TAB PO SCH (20:50)
[2017-03-17 09:32] LABS: INR 1.88 (0.83-1.16); PROTIME(PATIENT) 21.7 SEC (12.0-15.0)
[2017-03-17] MEDS: SENNOSIDES 1 TAB PO SCH ×2 (09:43→21:23)
[2017-03-17] MEDS: ASPIRIN 81 MG CHEWABLE TAB PO SCH (09:43)
[2017-03-17] MEDS: ENOXAPARIN 100 MG/ML SYR SC SCH ×2 (09:43→21:23)
[2017-03-17] MEDS: MAGNESIUM OXIDE 400 MG TAB PO SCH (09:43)
[2017-03-17] MEDS: POLYETHYLENE GLYCOL 3350 17 GM PKT PO SCH (09:44)
--- NOTE | 2017-03-17 10:51 | SOAPPROG ---
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 Initial FIM 39 on 03/12/17; gain to 56 on 03/16/17. Min - mod A transfers, low endurance. Needs cueing to initiate. RUE movement returning distal > proximal. Physical and occupational therapies to optimize mobility and activities of daily living. SHE WOULD BENEFIT FROM INDEPENDENT BEDSIDE UE,LE STRENGTHENING EXERCISES BETWEEN THERAPY SESSIONS * Cognitive impairment. Reduced comprehension, expression, orientation and memory. Continue APPLIED PSYCHOLOGY TEACHER. * Dysphagia. Advanced to DD2 after VFSS 03/14/17, but still on NTL. Continue APPLIED PSYCHOLOGY TEACHER. * Bilateral pulmonary emboli. On admission 03/06/17 she was 11 days out from her hemorrhagic transformation, and would benefit from anticoagulation. This was discussed with neurologist, Dr. Fine, who was in support of providing anticoagulation. Discussed with her daughter. AHA guideline recommends full anticoagulation if AFib at 2 weeks s/p hemorrhagic transformation, which would be 03/09/17. Increased enoxaparin to treatment dose and initiated warfarin ; pharmacy to dose. * DVTs, extensive, bilateral, on US 03/09/17. Continue anticoagulation plan. * Hypertension. BP THIS AM 127/67. CONTINUE TO MONITOR. Reduced lisinopril from 20 mg QD to 10 mg QD starting 03/14/17. D/C'd 03/15/17 . * Edema. TRACE LE EDEMA. Due to DVTs +/- contribution of pulmonary HTN. Continue compression stockings. Consider diuretic if BP improves. Continue daily weights. * Dehydration with elevated BUN/cr ratio, concentrated urine, low PO intake (25 - 50%) and low urine output. Hydrated IV 03/08 - 03/09/17 with NS 1000 cc at 75 cc /hr. Keep PICC for now until she's taking adequate PO hydration. Registration Scheduling Specialist following. Chronic/stable conditions: * Dyslipidemia. Continue atorvastatin. * Constipation. Responding to bowel protocol. * Lucio catheter, D/C'd 03/08/17. Voiding well. * Likely sleep apnea with crowded airway and history of snoring, and witnessed apneas. Daughter reports that she needs to sleep propped up, and this will be done. She was advised to have a sleep study after discharge, and can consider CPAP or other treatments. * Likely coronary artery disease, with lateral T-wave inversions on EKG at [facility], and an elevated troponin. She has been prescribed aspirin, which will be continued along with blood pressure and lipid medications. Copy of [facility] EKG reviewed, in paper chart. * Loss of teeth due to recent dental extraction. It is likely that she will continue to need a soft diet even as her swallowing improves. * Obesity. She will have a dietary consult. It would be in her best interest to be able to lose weight. Plan: 03/17/17 10:55 Subjective: No c/o SOB. No c/o right or left LE pain or SWELLING. Objective: Vital Signs Temp Pulse Resp BP Pulse Ox 36.7 C 63 16 127/67 H 93 03/17/17 07:03 03/17/17 07:03 03/17/17 07:03 03/17/17 07:03 03/17/17 07:03 Laboratory Results 03/09/17 11:35 03/09/17 11:35 03/16/17 03/17/17 03/18/17 05:59 05:59 05:59 Intake Total 950 1316 472 Output Total 550 350 75 Balance 400 966 397 PT 21.7 SEC (12.0-15.0) H 03/17/17 06:20 INR 1.88 (0.83-1.16) H 03/17/17 06:20 Physical Exam - Physical Exam General Appearance: WD/WN, alert, obese Respiratory: lungs clear, normal breath sounds Cardiac/Chest: No edema Abdomen: normal bowel sounds, non-tender, soft Skin: normal color, warm/dry Extremities: No calf tenderness, No swelling, No Gregoria's sign (TRACE PRETIBIAL EDEMA BOTH LEs) Neuro/Psych: normal mood/affect, oriented x 3, motor weakness (RUE,RLE weakness on motor testing. ) ICD10 Worksheet Patient Problems: Problems Problem Status Onset CVA (cerebral vascular accident) Acute
[2017-03-17] MEDS ORDERED: WARFARIN SODIUM 7.5 MG TAB PO ONE (16:00)
[2017-03-17] MEDS: ATORVASTATIN CALCIUM 40 MG TAB PO SCH (21:22)
[2017-03-18 08:24] LABS: INR 2.3 (0.83-1.16); PROTIME(PATIENT) 25.5 SEC (12.0-15.0)
--- NOTE | 2017-03-18 09:14 | SOAPPROG ---
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 Initial FIM 39 on 03/12/17; gain to 56 on 03/16/17. Min - mod A transfers, low endurance. Needs cueing to initiate. RUE movement returning distal > proximal. Physical and occupational therapies to optimize mobility and activities of daily living. SHE WOULD BENEFIT FROM INDEPENDENT BEDSIDE UE,LE STRENGTHENING EXERCISES BETWEEN THERAPY SESSIONS * Cognitive impairment. Reduced comprehension, expression, orientation and memory. Continue ACADEMIC AFFAIRS SPECIALIST. * Dysphagia. Advanced to DD2 after VFSS 03/14/17, but still on NTL. Continue ACADEMIC AFFAIRS SPECIALIST. * Bilateral pulmonary emboli. On admission 03/06/17 she was 11 days out from her hemorrhagic transformation, and would benefit from anticoagulation. This was discussed with neurologist, Dr. Fine, who was in support of providing anticoagulation. Discussed with her daughter. AHA guideline recommends full anticoagulation if AFib at 2 weeks s/p hemorrhagic transformation, which would be 03/09/17. Increased enoxaparin to treatment dose and initiated warfarin ; pharmacy to dose. PT/INR 25.5/2.3 * DVTs, extensive, bilateral, on US 03/09/17. Continue anticoagulation plan. * Hypertension. BP THIS AM 127/67. CONTINUE TO MONITOR. Reduced lisinopril from 20 mg QD to 10 mg QD starting 03/14/17. D/C'd 03/15/17 . * Edema. TRACE LE EDEMA. BP 117/71. WILL HOLD OFF ON DIURETICS TODAY PATIENT REPORTS SHE IS NOT TAKING IN ALOT OF FLUIDS ASND WAS PREVIOUSLY DEHYDRATED. Due to DVTs +/- contribution of pulmonary HTN. Continue compression stockings. Continue daily weights. * Dehydration with elevated BUN/cr ratio, concentrated urine, low PO intake (25 - 50%) and low urine output. Hydrated IV 03/08 - 03/09/17 with NS 1000 cc at 75 cc /hr. Keep PICC for now until she's taking adequate PO hydration. Deodorizer Operator following. Chronic/stable conditions: * Dyslipidemia. Continue atorvastatin. * Constipation. Responding to bowel protocol. * Lucio catheter, D/C'd 03/08/17. Voiding well. * Likely sleep apnea with crowded airway and history of snoring, and witnessed apneas. Daughter reports that she needs to sleep propped up, and this will be done. She was advised to have a sleep study after discharge, and can consider CPAP or other treatments. * Likely coronary artery disease, with lateral T-wave inversions on EKG at [facility], and an elevated troponin. She has been prescribed aspirin, which will be continued along with blood pressure and lipid medications. Copy of [facility] EKG reviewed, in paper chart. * Loss of teeth due to recent dental extraction. It is likely that she will continue to need a soft diet even as her swallowing improves. * Obesity. She will have a dietary consult. It would be in her best interest to be able to lose weight. Plan: 03/17/17 10:55 03/18/17 09:15 Subjective: c/o b/l foot pain. No other complaints. Objective: Vital Signs Temp Pulse Resp BP Pulse Ox 36.8 C 61 16 117/71 96 03/18/17 06:47 03/18/17 06:47 03/18/17 06:47 03/18/17 06:47 03/18/17 06:47 Laboratory Results 03/09/17 11:35 03/09/17 11:35 03/17/17 03/18/17 03/19/17 05:59 05:59 05:59 Intake Total 1316 1350 Output Total 350 675 150 Balance 966 675 -150 PT 25.5 SEC (12.0-15.0) H 03/18/17 06:00 INR 2.30 (0.83-1.16) H 03/18/17 06:00 Physical Exam - Physical Exam General Appearance: WD/WN, alert, no apparent distress Respiratory: lungs clear, normal breath sounds Abdomen: normal bowel sounds, non-tender, soft Skin: normal color, warm/dry Extremities: other (+1 right and left pretibial edema), No calf tenderness, No Gregoria's sign Neuro/Psych: motor weakness (motor exam unchanged from previous) ICD10 Worksheet Patient Problems: Problems Problem Status Onset CVA (cerebral vascular accident) Acute
[2017-03-18] MEDS: SENNOSIDES 1 TAB PO SCH ×2 (10:18→20:49)
[2017-03-18] MEDS: MAGNESIUM OXIDE 400 MG TAB PO SCH (10:19)
[2017-03-18] MEDS: ENOXAPARIN 100 MG/ML SYR SC SCH ×2 (10:19→20:48)
[2017-03-18] MEDS: POLYETHYLENE GLYCOL 3350 17 GM PKT PO SCH (10:19)
[2017-03-18] MEDS: ASPIRIN 81 MG CHEWABLE TAB PO SCH (10:19)
[2017-03-18] MEDS ORDERED: WARFARIN SODIUM 5 MG TAB PO ONE (16:00)
[2017-03-18] MEDS: ATORVASTATIN CALCIUM 40 MG TAB PO SCH (20:49)
[2017-03-19] MEDS: ASPIRIN 81 MG CHEWABLE TAB PO SCH (11:26)
[2017-03-19] MEDS: ENOXAPARIN 100 MG/ML SYR SC SCH ×2 (11:27→20:48)
[2017-03-19] MEDS: MAGNESIUM OXIDE 400 MG TAB PO SCH (11:27)
[2017-03-19] MEDS: POLYETHYLENE GLYCOL 3350 17 GM PKT PO SCH (11:28)
[2017-03-19] MEDS: SENNOSIDES 1 TAB PO SCH ×2 (11:28→20:48)
--- NOTE | 2017-03-19 13:56 | SOAPPROG ---
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 Initial FIM 39 on 03/12/17; gain to 56 on 03/16/17. Min - mod A transfers, low endurance. Needs cueing to initiate. RUE movement returning distal > proximal. Ambulation improving on 03/19/17 > 50' FWW CGA. Physical and occupational therapies to optimize mobility and activities of daily living. * Cognitive impairment. Reduced comprehension, expression, orientation and memory. Continue MINE MANAGER. * Dysphagia. Advanced to DD2 after VFSS 03/14/17, but still on NTL. Continue MINE MANAGER. * Edema. Due to DVTs +/- contribution of pulmonary HTN. Continue compression stockings. Weight is up markedly on 03/19/17: will initiate furosemide 20 mg QD. Continue daily weights. * Bilateral pulmonary emboli. On admission 03/06/17 she was 11 days out from her hemorrhagic transformation, and would benefit from anticoagulation. This was discussed with neurologist, Dr. Fine, who was in support of providing anticoagulation. Discussed with her daughter. AHA guideline recommends full anticoagulation if AFib at 2 weeks s/p hemorrhagic transformation, which would be 03/09/17. Increased enoxaparin to treatment dose and initiated warfarin ; pharmacy to dose. * DVTs, extensive, bilateral, on US 03/09/17. Continue anticoagulation plan. * Hypertension. BP running low. Reduced lisinopril from 20 mg QD to 10 mg QD starting 03/14/17. D/C'd 03/15/17 . Observe for elevated BP. * Dehydration with elevated BUN/cr ratio, concentrated urine, low PO intake (25 - 50%) and low urine output. Hydrated IV 03/08 - 03/09/17 with NS 1000 cc at 75 cc /hr. Keep PICC for now until she's taking adequate PO hydration. Program Management Intern following. Chronic/stable conditions: * Dyslipidemia. Continue atorvastatin. * Constipation. Responding to bowel protocol. * Lucio catheter, D/C'd 03/08/17. Voiding well. * Likely sleep apnea with crowded airway and history of snoring, and witnessed apneas. Daughter reports that she needs to sleep propped up, and this will be done. She was advised to have a sleep study after discharge, and can consider CPAP or other treatments. * Likely coronary artery disease, with lateral T-wave inversions on EKG at [facility], and an elevated troponin. She has been prescribed aspirin, which will be continued along with blood pressure and lipid medications. Copy of [facility] EKG reviewed, in paper chart. * Loss of teeth due to recent dental extraction. It is likely that she will continue to need a soft diet even as her swallowing improves. * Obesity. She will have a dietary consult. It would be in her best interest to be able to lose weight. Lives in ranch home with dtr & grdtr, 5 AUGUST. Goal to discharge to home, . Follow-up Neurosurgery Dr. Odell 03/29/17, with head CT prior to follow-up. 03/19/17 13:54 Subjective: No complaints. Not in pain, no cough/dyspnea, f/c. Objective: Vital Signs Temp Pulse Resp BP Pulse Ox 36.5 C 60 18 118/66 93 03/19/17 08:00 03/19/17 08:00 03/19/17 08:00 03/19/17 08:00 03/19/17 08:00 Laboratory Results 03/09/17 11:35 03/09/17 11:35 03/18/17 03/19/17 03/20/17 05:59 05:59 05:59 Intake Total 1350 1500 740 Output Total 675 500 200 Balance 675 1000 540 PT 25.5 SEC (12.0-15.0) H 03/18/17 06:00 INR 2.30 (0.83-1.16) H 03/18/17 06:00 Physical Exam - Physical Exam General Appearance: WD/WN, alert, no apparent distress, obese Respiratory: normal breath sounds, No crackles, No rhonchi, No wheezing Cardiac/Chest: regular rate, rhythm, edema (3+ B LE), No JVD Skin: normal color, warm/dry Neuro/Psych: alert, normal mood/affect, oriented x 3, abnormal gait (Observed ambulating with PT, FWW, foot drag on R.) ICD10 Worksheet Patient Problems: Problems Problem Status Onset CVA (cerebral vascular accident) Acute
[2017-03-19] MEDS: FUROSEMIDE 20 MG TAB PO SCH (15:15)
[2017-03-19] MEDS ORDERED: WARFARIN SODIUM 5 MG TAB PO ONE (16:00)
[2017-03-19 16:25] LABS: INR 2.7 (0.83-1.16)
[2017-03-19] MEDS: ATORVASTATIN CALCIUM 40 MG TAB PO SCH (20:46)
[2017-03-20 08:30] LABS: INR 3.11 (0.83-1.16); PROTIME(PATIENT) 32.5 SEC (12.0-15.0)
[2017-03-20] MEDS: POLYETHYLENE GLYCOL 3350 17 GM PKT PO SCH (09:03)
[2017-03-20] MEDS: MAGNESIUM OXIDE 400 MG TAB PO SCH (09:03)
[2017-03-20] MEDS: FUROSEMIDE 20 MG TAB PO SCH (09:03)
[2017-03-20] MEDS: ENOXAPARIN 100 MG/ML SYR SC SCH ×2 (09:03→09:09)
[2017-03-20] MEDS: ASPIRIN 81 MG CHEWABLE TAB PO SCH (09:03)
[2017-03-20] MEDS: SENNOSIDES 1 TAB PO SCH ×2 (09:03→21:39)
--- NOTE | 2017-03-20 11:45 | SOAPPROG ---
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 Initial FIM 39 on 03/12/17; gain to 56 on 03/16/17. Min - mod A transfers, low endurance. Needs cueing to initiate. RUE movement returning distal > proximal. Ambulation improving on 03/19/17 > 50' FWW CGA. Physical and occupational therapies to optimize mobility and activities of daily living. * Cognitive impairment. Reduced comprehension, expression, orientation and memory. Continue CUSTOMER SUPPORT ENGINEER. * Dysphagia. Advanced to DD2 after VFSS 03/14/17, but still on NTL. Continue CUSTOMER SUPPORT ENGINEER. * Edema. Due to DVTs +/- contribution of pulmonary HTN. Continue compression stockings. Weight is up markedly on 03/19/17: will initiate furosemide 20 mg QD. Continue daily weights. * Bilateral pulmonary emboli. On admission 03/06/17 she was 11 days out from her hemorrhagic transformation, and would benefit from anticoagulation. This was discussed with neurologist, Dr. Fine, who was in support of providing anticoagulation. Discussed with her daughter. AHA guideline recommends full anticoagulation if AFib at 2 weeks s/p hemorrhagic transformation, which would be 03/09/17. Increased enoxaparin to treatment dose and initiated warfarin ; pharmacy to dose. * DVTs, extensive, bilateral, on US 03/09/17. Continue anticoagulation plan. * Hypertension. BP running low. Reduced lisinopril from 20 mg QD to 10 mg QD starting 03/14/17. D/C'd 03/15/17 . Observe for elevated BP. * Dehydration with elevated BUN/cr ratio, concentrated urine, low PO intake (25 - 50%) and low urine output. Hydrated IV 03/08 - 03/09/17 with NS 1000 cc at 75 cc /hr. D/C PICC 03/21/17 as she's taking adequate PO hydration. Physical Therapy Instructor following. Chronic/stable conditions: * Dyslipidemia. Continue atorvastatin. * Constipation. Responding to bowel protocol. * Lucio catheter, D/C'd 03/08/17. Voiding well. * Likely sleep apnea with crowded airway and history of snoring, and witnessed apneas. Daughter reports that she needs to sleep propped up, and this will be done. She was advised to have a sleep study after discharge, and can consider CPAP or other treatments. * Likely coronary artery disease, with lateral T-wave inversions on EKG at [facility], and an elevated troponin. She has been prescribed aspirin, which will be continued along with blood pressure and lipid medications. Copy of [facility] EKG reviewed, in paper chart. * Loss of teeth due to recent dental extraction. It is likely that she will continue to need a soft diet even as her swallowing improves. * Obesity. She will have a dietary consult. It would be in her best interest to be able to lose weight. Lives in ranch home with dtr & grdtr, 5 AUGUST. Goal to discharge to home, . Follow-up Neurosurgery Dr. Odell 03/29/17, with head CT prior to follow-up. 03/20/17 11:40 Subjective: No complaints. Slept well, no cough/dyspnea, f/c, no pain. Has return of movement RUE. Objective: Vital Signs Temp Pulse Resp BP Pulse Ox 36.5 C 63 16 99/63 L 94 03/20/17 06:54 03/20/17 06:54 03/20/17 06:54 03/20/17 06:54 03/20/17 06:54 Laboratory Results 03/09/17 11:35 03/09/17 11:35 03/19/17 03/20/17 03/21/17 05:59 05:59 05:59 Intake Total 1500 1458 400 Output Total 500 400 Balance 1000 1058 400 PT 32.5 SEC (12.0-15.0) H 03/20/17 06:00 INR 3.11 (0.83-1.16) H 03/20/17 06:00 Physical Exam - Physical Exam General Appearance: WD/WN, alert, no apparent distress, obese Respiratory: normal breath sounds, No crackles, No rhonchi, No wheezing Cardiac/Chest: regular rate, rhythm, edema (2+ B LE) Skin: normal color, warm/dry Neuro/Psych: alert, normal mood/affect, oriented x 3, abnormal gait (with PT using FWW, slight foot drag on R.), motor weakness (Has pronation/supination and finger extension/flexion RUE.) ICD10 Worksheet Patient Problems: Problems Problem Status Onset CVA (cerebral vascular accident) Acute
[2017-03-20] MEDS ORDERED: WARFARIN SODIUM 2.5 MG TAB PO ONE (16:00)
[2017-03-20] MEDS: ATORVASTATIN CALCIUM 40 MG TAB PO SCH (21:39)
[2017-03-21 07:50] LABS: INR 2.72 (0.83-1.16); PROTIME(PATIENT) 29.2 SEC (12.0-15.0)
[2017-03-21] MEDS: SENNOSIDES 1 TAB PO SCH ×2 (10:14→20:32)
[2017-03-21] MEDS: POLYETHYLENE GLYCOL 3350 17 GM PKT PO SCH (10:14)
[2017-03-21] MEDS: ASPIRIN 81 MG CHEWABLE TAB PO SCH (10:14)
[2017-03-21] MEDS: MAGNESIUM OXIDE 400 MG TAB PO SCH (10:14)
[2017-03-21] MEDS: FUROSEMIDE 20 MG TAB PO SCH (10:14)
--- NOTE | 2017-03-21 15:05 | SOAPPROG ---
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 Initial FIM 39 on 03/12/17; gain to 56 on 03/16/17. Min - mod A transfers, low endurance. Needs cueing to initiate. RUE movement returning distal > proximal. Ambulation improving on 03/19/17 > 50' FWW CGA. Physical and occupational therapies to optimize mobility and activities of daily living. * Cognitive impairment. Reduced comprehension, expression, orientation and memory. Continue DIRECTOR BIOINFORMATICS. * Dysphagia. Advanced to DD2 after VFSS 03/14/17, but still on NTL. Continue DIRECTOR BIOINFORMATICS. * Edema. Due to DVTs +/- contribution of pulmonary HTN. Continue compression stockings. Weight is up markedly on 03/19/17: will initiate furosemide 20 mg QD. Continue daily weights. * Bilateral pulmonary emboli. On admission 03/06/17 she was 11 days out from her hemorrhagic transformation, and would benefit from anticoagulation. This was discussed with neurologist, Dr. Fine, who was in support of providing anticoagulation. Discussed with her daughter. AHA guideline recommends full anticoagulation if AFib at 2 weeks s/p hemorrhagic transformation, which would be 03/09/17. Increased enoxaparin to treatment dose and initiated warfarin ; pharmacy to dose. * DVTs, extensive, bilateral, on US 03/09/17. Continue anticoagulation plan. * R leg pain. Due to DVT vs increased activity. Responded to ice. Continue to monitor. * Hypertension. BP running low. Reduced lisinopril from 20 mg QD to 10 mg QD starting 03/14/17. D/C'd 03/15/17 . Observe for elevated BP. * Dehydration with elevated BUN/cr ratio, concentrated urine, low PO intake (25 - 50%) and low urine output. Hydrated IV 03/08 - 03/09/17 with NS 1000 cc at 75 cc /hr. D/C PICC 03/21/17 as she's taking adequate PO hydration. Lumber Grader following. Chronic/stable conditions: * Dyslipidemia. Continue atorvastatin. * Constipation. Responding to bowel protocol. * Lucio catheter, D/C'd 03/08/17. Voiding well. * Likely sleep apnea with crowded airway and history of snoring, and witnessed apneas. Daughter reports that she needs to sleep propped up, and this will be done. She was advised to have a sleep study after discharge, and can consider CPAP or other treatments. * Likely coronary artery disease, with lateral T-wave inversions on EKG at [facility], and an elevated troponin. She has been prescribed aspirin, which will be continued along with blood pressure and lipid medications. Copy of [facility] EKG reviewed, in paper chart. * Loss of teeth due to recent dental extraction. It is likely that she will continue to need a soft diet even as her swallowing improves. * Obesity. She will have a dietary consult. It would be in her best interest to be able to lose weight. Lives in ranch home with dtr & grdtr, 5 AUGUST. Goal to discharge to home, . Follow-up Neurosurgery Dr. Odell 03/29/17, with head CT prior to follow-up. 03/21/17 15:04 Subjective: C/O R leg pain behind the knee. O/W w/out complaint. Slept well, no other pain , no f/c, no cough/dyspnea. Objective: Vital Signs Temp Pulse Resp BP Pulse Ox 36.6 C 82 16 109/62 92 03/21/17 06:10 03/21/17 06:10 03/21/17 06:10 03/21/17 06:10 03/21/17 06:10 Laboratory Results 03/09/17 11:35 03/09/17 11:35 03/20/17 03/21/17 03/22/17 05:59 05:59 05:59 Intake Total 1458 1160 908 Output Total 400 300 Balance 1058 860 908 PT 29.2 SEC (12.0-15.0) H 03/21/17 06:00 INR 2.72 (0.83-1.16) H 03/21/17 06:00 Physical Exam - Physical Exam General Appearance: WD/WN, alert, no apparent distress Respiratory: No respiratory distress, No accessory muscle use Cardiac/Chest: edema (2+ B LE) Skin: normal color, warm/dry, other (minimal bruising R lateral popliteal) Extremities: other (Tender R lateral posterio knee) Neuro/Psych: alert, normal mood/affect, oriented x 3, abnormal gait (SLow, narro -based, with FWW, slight foot drag on R) ICD10 Worksheet Patient Problems: Problems Problem Status Onset CVA (cerebral vascular accident) Acute
[2017-03-21] MEDS ORDERED: WARFARIN SODIUM 2.5 MG TAB PO ONE (16:00)
[2017-03-21] MEDS: ATORVASTATIN CALCIUM 40 MG TAB PO SCH (20:32)
[2017-03-22 07:55] LABS: INR 2.4 (0.83-1.16); PROTIME(PATIENT) 26.4 SEC (12.0-15.0)
[2017-03-22] MEDS: SENNOSIDES 1 TAB PO SCH ×2 (08:47→21:47)
[2017-03-22] MEDS: POLYETHYLENE GLYCOL 3350 17 GM PKT PO SCH (08:47)
[2017-03-22] MEDS: FUROSEMIDE 20 MG TAB PO SCH (08:47)
[2017-03-22] MEDS: MAGNESIUM OXIDE 400 MG TAB PO SCH (08:47)
[2017-03-22] MEDS: ASPIRIN 81 MG CHEWABLE TAB PO SCH (08:47)
--- NOTE | 2017-03-22 12:00 | SOAPPROG ---
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 Initial FIM 39 on 03/12/17; gain to 56 on 03/16/17, to 74 as of 03/22/17. Min - mod A transfers, low endurance. Needs cueing to initiate. RUE movement returning distal > proximal. Assist for bra, o/w set-up /cues UB dressing, min A LB. Tub t'reynaldo min A, bathing CGA. Ambulation 150' FWW CGA. Physical and occupational therapies to optimize mobility and activities of daily living. * Cognitive impairment. Reduced comprehension, expression, orientation and memory, all improving. Continue SEISMOGRAPH OBSERVER. * Dysphagia. Advanced to DD2 after VFSS 03/14/17, but still on NTL. Likely advance to DD3 03/22/17, and trials of thins. Water protocol. Continue SEISMOGRAPH OBSERVER. * Edema. Due to DVTs +/- contribution of pulmonary HTN. Continue compression stockings. Weight is up markedly on 03/19/17: initiated furosemide 20 mg QD and gradually losing weight. Continue daily weights. * Bilateral pulmonary emboli. On admission 03/06/17 she was 11 days out from her hemorrhagic transformation, and would benefit from anticoagulation. This was discussed with neurologist, Dr. Fine, who was in support of providing anticoagulation. Discussed with her daughter. AHA guideline recommends full anticoagulation if AFib at 2 weeks s/p hemorrhagic transformation, which would be 03/09/17. Increased enoxaparin to treatment dose and initiated warfarin ; pharmacy to dose. * DVTs, extensive, bilateral, on US 03/09/17. Continue anticoagulation.. * R leg pain. Due to DVT vs increased activity. Responded to ice. Continue to monitor. * Hypertension. BP running low. Reduced lisinopril from 20 mg QD to 10 mg QD starting 03/14/17. D/C'd 03/15/17 . Observe for elevated BP. * Dehydration with elevated BUN/cr ratio, concentrated urine, low PO intake (25 - 50%) and low urine output. Hydrated IV 03/08 - 03/09/17 with NS 1000 cc at 75 cc /hr. D/C PICC 03/21/17 as she's taking adequate PO hydration. Survival Equipment Repairer following. Chronic/stable conditions: * Dyslipidemia. Continue atorvastatin. * Constipation. Responding to bowel protocol. * Lucio catheter, D/C'd 03/08/17. Voiding well. * Likely sleep apnea with crowded airway and history of snoring, and witnessed apneas. Daughter reports that she needs to sleep propped up, and this will be done. She was advised to have a sleep study after discharge, and can consider CPAP or other treatments. * Likely coronary artery disease, with lateral T-wave inversions on EKG at [facility], and an elevated troponin. She has been prescribed aspirin, which will be continued along with blood pressure and lipid medications. Copy of [facility] EKG reviewed, in paper chart. * Loss of teeth due to recent dental extraction. She may continue to need a soft diet even as her swallowing improves. * Obesity. She will have a dietary consult. It would be in her best interest to be able to lose weight. Attended staffing, 15 min. D/W case mgmt, nursing, PT, OT, SEISMOGRAPH OBSERVER, church organist, pharmacist. Lives in ran home with dtr & grdtr, 5 AUGUST. Goal to discharge to home, 04/06/17. Follow-up D/W IR[facility] White for Neurosurgery Dr. Odell. As she's doing well and functionally improving, no need to follow-up. 03/22/17 11:46 Subjective: No complaints. Not in pain. No cough/dyspnea, no f/c. Objective: Vital Signs Temp Pulse Resp BP Pulse Ox 36.7 C 65 16 102/64 94 03/22/17 05:35 03/22/17 05:35 03/22/17 05:35 03/22/17 05:35 03/22/17 05:35 Laboratory Results 03/09/17 11:35 03/09/17 11:35 03/21/17 03/22/17 03/23/17 05:59 05:59 05:59 Intake Total 1160 1368 354 Output Total 300 Balance 860 1368 354 PT 26.4 SEC (12.0-15.0) H 03/22/17 06:10 INR 2.40 (0.83-1.16) H 03/22/17 06:10 - Time Spent With Patient Time Spent With Patient: Greater than 35 minutes floor time today, including more than 50% of time in coordination of care during staffing, and counseling patient. Physical Exam - Physical Exam General Appearance: WD/WN, alert, no apparent distress Respiratory: normal breath sounds, wheezing, No crackles, No rhonchi Cardiac/Chest: regular rate, rhythm, edema (2+ B LE) Skin: normal color, warm/dry Neuro/Psych: alert, normal mood/affect ICD10 Worksheet Patient Problems: Problems Problem Status Onset CVA (cerebral vascular accident) Acute
[2017-03-22] MEDS ORDERED: WARFARIN SODIUM 5 MG TAB PO ONE (16:00)
[2017-03-22] MEDS: ATORVASTATIN CALCIUM 40 MG TAB PO SCH (21:46)
[2017-03-23 08:03] LABS: INR 2.15 (0.83-1.16); PROTIME(PATIENT) 24.2 SEC (12.0-15.0)
[2017-03-23] MEDS: POLYETHYLENE GLYCOL 3350 17 GM PKT PO SCH (09:35)
[2017-03-23] MEDS: MAGNESIUM OXIDE 400 MG TAB PO SCH (09:35)
[2017-03-23] MEDS: ASPIRIN 81 MG CHEWABLE TAB PO SCH (09:35)
[2017-03-23] MEDS: FUROSEMIDE 20 MG TAB PO SCH (09:35)
[2017-03-23] MEDS: SENNOSIDES 1 TAB PO SCH ×2 (09:36→20:25)
--- NOTE | 2017-03-23 12:54 | SOAPPROG ---
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 Initial FIM 39 on 03/12/17; gain to 56 on 03/16/17, to 74 as of 03/22/17. Min - mod A transfers, low endurance. Needs cueing to initiate. RUE movement returning distal > proximal. Assist for bra, o/w set-up /cues UB dressing, min A LB. Tub t'reynaldo min A, bathing CGA. Ambulation 150' FWW CGA. Physical and occupational therapies to optimize mobility and activities of daily living. * Cognitive impairment. Reduced comprehension, expression, orientation and memory, all improving. Continue ROBOTICS TECHNICIAN. * Dysphagia. Advanced to DD2 after VFSS 03/14/17, but still on NTL. Advanced to DD3 03/22/17, and trials of thins but continues NTL. Water protocol. Continue ROBOTICS TECHNICIAN. * Edema. Due to DVTs +/- contribution of pulmonary HTN. Continue compression stockings. Weight is up markedly on 03/19/17: initiated furosemide 20 mg QD and gradually losing weight. Continue daily weights. * Bilateral pulmonary emboli. On admission 03/06/17 she was 11 days out from her hemorrhagic transformation, and would benefit from anticoagulation. This was discussed with neurologist, Dr. Fine, who was in support of providing anticoagulation. Discussed with her daughter. AHA guideline recommends full anticoagulation if AFib at 2 weeks s/p hemorrhagic transformation, which would be 03/09/17. Increased enoxaparin to treatment dose and initiated warfarin ; pharmacy to dose. * DVTs, extensive, bilateral, on US 03/09/17. Continue anticoagulation.. * R leg pain. Due to DVT vs increased activity. Responded to ice. Continue to monitor. * Hypertension. BP running low. Reduced lisinopril from 20 mg QD to 10 mg QD starting 03/14/17. D/C'd 03/15/17 . Observe for elevated BP. * Dehydration with elevated BUN/cr ratio, concentrated urine, low PO intake (25 - 50%) and low urine output. Hydrated IV 03/08 - 03/09/17 with NS 1000 cc at 75 cc /hr. D/C PICC 03/21/17 as she's taking adequate PO hydration. System Technologist following. Chronic/stable conditions: * Dyslipidemia. Continue atorvastatin. * Constipation. Responding to bowel protocol. * Lucio catheter, D/C'd 03/08/17. Voiding well. * Likely sleep apnea with crowded airway and history of snoring, and witnessed apneas. Daughter reports that she needs to sleep propped up, and this will be done. She was advised to have a sleep study after discharge, and can consider CPAP or other treatments. * Likely coronary artery disease, with lateral T-wave inversions on EKG at [facility], and an elevated troponin. She has been prescribed aspirin, which will be continued along with blood pressure and lipid medications. Copy of [facility] EKG reviewed, in paper chart. * Loss of teeth due to recent dental extraction. She may continue to need a soft diet even as her swallowing improves. * Obesity. She will have a dietary consult. It would be in her best interest to be able to lose weight. Lives in ranch home with dtr & grdtr, 5 AUGUST. Goal to discharge to home, . Follow-up D/W IR[facility] White for Neurosurgery Dr. Odell. As she's doing well and functionally improving, no need to follow-up. 03/23/17 12:55 Subjective: No complaints. Thinks her swelling is decreased. Sleeping well, not in pain, no cough/dyspnea, no f/c. Objective: Vital Signs Temp Pulse Resp BP Pulse Ox 37 C 68 16 107/65 93 03/23/17 06:02 03/23/17 06:02 03/23/17 06:02 03/23/17 06:02 03/23/17 06:02 Laboratory Results 03/09/17 11:35 03/09/17 11:35 03/22/17 03/23/17 03/24/17 05:59 05:59 05:59 Intake Total 1368 1188 800 Output Total 175 225 Balance 1368 1013 575 PT 24.2 SEC (12.0-15.0) H 03/23/17 06:22 INR 2.15 (0.83-1.16) H 03/23/17 06:22 Physical Exam - Physical Exam General Appearance: WD/WN, alert, no apparent distress Respiratory: No respiratory distress, No accessory muscle use Cardiac/Chest: edema (2+ B LE) Skin: normal color, warm/dry Neuro/Psych: alert, normal mood/affect, motor weakness (RUE), speech abnormalities (Mild dysarthria) ICD10 Worksheet Patient Problems: Problems Problem Status Onset CVA (cerebral vascular accident) Acute
[2017-03-23] MEDS: WARFARIN SODIUM 5 MG TAB PO SCH (16:49)
[2017-03-23] MEDS: ATORVASTATIN CALCIUM 40 MG TAB PO SCH (20:25)
[2017-03-24] MEDS: FUROSEMIDE 20 MG TAB PO SCH (08:22)
[2017-03-24] MEDS: POLYETHYLENE GLYCOL 3350 17 GM PKT PO SCH (08:22)
[2017-03-24] MEDS: MAGNESIUM OXIDE 400 MG TAB PO SCH (08:22)
[2017-03-24] MEDS: ASPIRIN 81 MG CHEWABLE TAB PO SCH (08:22)
[2017-03-24] MEDS: SENNOSIDES 1 TAB PO SCH ×3 (08:23→20:05)
--- NOTE | 2017-03-24 12:21 | SOAPPROG ---
SOAP Progress Note Assessment/Plan: Assessment: 66 yo F w/ embolic CVA 02/23/17, L basal ganglia with hemorrhagic conversion s/p tPA thrombolysis, with PFO and incidental finding of B pulmonary emboli: * Left basal ganglia cerebrovascular accident with dysphagia, and right upper and lower extremity weakness. Initial FIM 39 on 03/12/17; gain to 56 on 03/16/17, to 74 as of 03/22/17. Min - mod A transfers, low endurance. Needs cueing to initiate. RUE movement returning distal > proximal. Assist for bra, o/w set-up /cues UB dressing, min A LB. Tub t'reynaldo min A, bathing CGA. Ambulation 150' FWW CGA. Physical and occupational therapies to optimize mobility and activities of daily living. * Cognitive impairment. Reduced comprehension, expression, orientation and memory, all improving. Continue CHIEF ENGINEER DRILLING AND RECOVERY. * Dysphagia. Advanced to DD3 03/22/17, and trials of thins but continues NTL. Water protocol. Continue CHIEF ENGINEER DRILLING AND RECOVERY. * Edema. Due to DVTs +/- contribution of pulmonary HTN. Continue compression stockings. Weight is up markedly on 03/19/17: initiated furosemide 20 mg QD and gradually losing weight. Weight stable 03/22 - 03/24 100.2 kg. Continue daily weights. * Bilateral pulmonary emboli. On admission 03/06/17 she was 11 days out from her hemorrhagic transformation, and would benefit from anticoagulation. This was discussed with neurologist, Dr. Fine, who was in support of providing anticoagulation. Discussed with her daughter. AHA guideline recommends full anticoagulation if AFib at 2 weeks s/p hemorrhagic transformation, which would be 03/09/17. Increased enoxaparin to treatment dose and initiated warfarin ; pharmacy to dose. * DVTs, extensive, bilateral, on US 03/09/17. Continue anticoagulation.. * R leg pain. Due to DVT vs increased activity. Responded to ice. Continue to monitor. * Hypertension. BP running low. Reduced lisinopril from 20 mg QD to 10 mg QD starting 03/14/17. D/C'd 03/15/17 . BP 102/63. Chronic/stable conditions: * Dyslipidemia. Continue atorvastatin. * Constipation. Responding to bowel protocol. * Lucio catheter, D/C'd 03/08/17. Voiding well. * Likely sleep apnea with crowded airway and history of snoring, and witnessed apneas. Daughter reports that she needs to sleep propped up, and this will be done. She was advised to have a sleep study after discharge, and can consider CPAP or other treatments. * Likely coronary artery disease, with lateral T-wave inversions on EKG at [facility], and an elevated troponin. She has been prescribed aspirin, which will be continued along with blood pressure and lipid medications. Copy of [facility] EKG reviewed, in paper chart. * Loss of teeth due to recent dental extraction. She may continue to need a soft diet even as her swallowing improves. * Obesity. dietary consult. * Lives in ran home with dtr & grdtr, 5 AUGUST. Goal to discharge to home, . Follow-up D/W IR[facility] White for Neurosurgery Dr. Odell. As she's doing well and functionally improving, no need to follow-up. Plan: Cont Dr Pimentel rehab treatment plan 03/24/17 12:22 03/24/17 12:25 Subjective: No new problems or c/o's Resting comfortably No F/C/CP/SOB/N/V/D/C Objective: Vital Signs Temp Pulse Resp BP Pulse Ox 36.6 C 64 16 102/63 95 03/24/17 06:29 03/24/17 06:29 03/24/17 06:29 03/24/17 06:29 03/24/17 06:29 Laboratory Results 03/09/17 11:35 03/09/17 11:35 03/23/17 03/24/17 03/25/17 05:59 05:59 05:59 Intake Total 1188 1620 360 Output Total 175 825 150 Balance 1013 795 210 PT 24.2 SEC (12.0-15.0) H 03/23/17 06:22 INR 2.15 (0.83-1.16) H 03/23/17 06:22 Physical Exam - Physical Exam General Appearance: alert, no apparent distress Neck: supple Respiratory: lungs clear Cardiac/Chest: regular rate, rhythm Skin: normal color, warm/dry Extremities: pedal edema (2+) Neuro/Psych: alert, normal mood/affect, motor weakness (R hemiparesis), other ( no acute changes) ICD10 Worksheet Patient Problems: Problems Problem Status Onset CVA (cerebral vascular accident) Acute
[2017-03-24] MEDS: WARFARIN SODIUM 5 MG TAB PO SCH (16:07)
[2017-03-24] MEDS: ATORVASTATIN CALCIUM 40 MG TAB PO SCH (20:04)
[2017-03-25] MEDS: ASPIRIN 81 MG CHEWABLE TAB PO SCH (08:28)
[2017-03-25] MEDS: POLYETHYLENE GLYCOL 3350 17 GM PKT PO SCH (08:28)
[2017-03-25] MEDS: SENNOSIDES 1 TAB PO SCH ×2 (08:28→20:55)
[2017-03-25] MEDS: FUROSEMIDE 20 MG TAB PO SCH (08:28)
[2017-03-25] MEDS: MAGNESIUM OXIDE 400 MG TAB PO SCH (08:28)
[2017-03-25 08:45] LABS: INR 2.34 (0.83-1.16); PROTIME(PATIENT) 25.9 SEC (12.0-15.0)
[2017-03-25] MEDS ORDERED: FUROSEMIDE 20 MG TAB PO ONE (13:02)
--- NOTE | 2017-03-25 13:45 | SOAPPROG ---
SOAP Progress Note Assessment/Plan: Assessment: 66 yo F w/ embolic CVA 02/23/17, L basal ganglia with hemorrhagic conversion s/p tPA thrombolysis, with PFO and incidental finding of B pulmonary emboli: * Left basal ganglia cerebrovascular accident with dysphagia, and right hemiparesis. Cont tx.. Initial FIM 39 on 03/12/17; gain to 56 on 03/16/17, to 74 as of 03/22/17. Min - mod A transfers, low endurance. Needs cueing to initiate. RUE movement returning distal > proximal. Assist for bra, o/w set-up/cues UB dressing, min A LB. Tub t'reynaldo min A, bathing CGA. Ambulation 150' FWW CGA. Physical and occupational therapies to optimize mobility and activities of daily living. * Cognitive impairment. Reduced comprehension, expression, orientation and memory, all improving. Continue JOB SPECIFICATION WRITER. * Dysphagia. Advanced to DD3 03/22/17, and trials of thins but continues NTL. Water protocol. Continue JOB SPECIFICATION WRITER. * Edema. Due to DVTs +/- contribution of pulmonary HTN. Continue compression stockings. Weight was up markedly on 03/19/17: initiated furosemide 20 mg QD and gradually losing weight. Weight stable 03/22 - 03/25 100.2 kg. Give extra bolus of Lasix 20 mg today, check BMP in am, Continue daily weights. * Bilateral pulmonary emboli. AHA guideline recommends full anticoagulation if AFib at 2 weeks s/p hemorrhagic transformation, which would be 03/09/17. Increased enoxaparin to treatment dose and initiated warfarin 03/09/17; INR stable 2.34. * DVTs, extensive, bilateral, on US 03/09/17. Continue anticoagulation.. * R leg pain. Due to DVT vs increased activity. Responded to ice. Continue to monitor. * Hypertension. BP running low. Reduced lisinopril from 20 mg QD to 10 mg QD starting 03/14/17. D/C'd 03/15/17 . BP 106/64 Chronic/stable conditions: * Dyslipidemia. Continue atorvastatin. * Constipation. Responding to bowel protocol. * Lucio catheter, D/C'd 03/08/17. Voiding well. * Likely sleep apnea with crowded airway and history of snoring, and witnessed apneas. Daughter reports that she needs to sleep propped up, and this will be done. She was advised to have a sleep study after discharge, and can consider CPAP or other treatments. * Likely coronary artery disease, with lateral T-wave inversions on EKG at [facility], and an elevated troponin. She has been prescribed aspirin, which will be continued along with blood pressure and lipid medications. Copy of [facility] EKG reviewed, in paper chart. * Loss of teeth due to recent dental extraction. She may continue to need a soft diet even as her swallowing improves. * Obesity. dietary consult. Lives in ranch home with dtr & grdtr, 5 AUGUST. Goal to discharge to home, . Follow-up D/W [facility] for Neurosurgery Dr. Odell. As she's doing well and functionally improving, no need to follow-up. Plan: Cont Dr Pimentel rehab treatment plan. Extra bolus of Lasix for Pedal Edema, check BMP 03/25/17 13:45 Subjective: In good spirits, comfortable Concerned with persistent pedal edema No F/C?CP/SOB/N/V/D/C Objective: Vital Signs Temp Pulse Resp BP Pulse Ox 36.7 C 82 16 106/64 94 03/25/17 06:46 03/25/17 06:46 03/25/17 06:46 03/25/17 06:46 03/25/17 06:46 Laboratory Results 03/09/17 11:35 03/09/17 11:35 03/24/17 03/25/17 03/26/17 05:59 05:59 05:59 Intake Total 1620 950 780 Output Total 825 150 Balance 795 800 780 PT 25.9 SEC (12.0-15.0) H 03/25/17 06:00 INR 2.34 (0.83-1.16) H 03/25/17 06:00 Physical Exam - Physical Exam General Appearance: alert, no apparent distress Neck: supple Respiratory: lungs clear Skin: normal color, warm/dry Extremities: pedal edema (2+) Neuro/Psych: alert, normal mood/affect, other (no acute changes) ICD10 Worksheet Patient Problems: Problems Problem Status Onset CVA (cerebral vascular accident) Acute
[2017-03-25] MEDS: WARFARIN SODIUM 5 MG TAB PO SCH (17:40)
[2017-03-25] MEDS: ATORVASTATIN CALCIUM 40 MG TAB PO SCH (20:54)
[2017-03-26] MEDS: MAGNESIUM OXIDE 400 MG TAB PO SCH (07:36)
[2017-03-26] MEDS: ASPIRIN 81 MG CHEWABLE TAB PO SCH (07:36)
[2017-03-26] MEDS: POLYETHYLENE GLYCOL 3350 17 GM PKT PO SCH (07:36)
[2017-03-26] MEDS: FUROSEMIDE 20 MG TAB PO SCH (07:37)
[2017-03-26] MEDS: SENNOSIDES 1 TAB PO SCH (07:37)
[2017-03-26 08:07] LABS: ANION GAP 9 mEq/L (8-16); CALCIUM 9.1 mg/dL (8.5-10.4); CARBON DIOXIDE 30 mEq/l (22-31); CHLORIDE 100 mEq/L (97-110); CREATININE 0.6 mg/dL (0.6-1.0); GLOMERULAR FILTRATION RATE > 60; GLUCOSE 74 mg/dL (70-100); POTASSIUM 3.6 mEq/L (3.5-5.2); SODIUM 139 mEq/L (134-144)
[2017-03-26] MEDS ORDERED: SENNOSIDES 1 TAB PO PRN (09:05)
--- NOTE | 2017-03-26 10:07 | SOAPPROG ---
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 Initial FIM 39 on 03/12/17; gain to 56 on 03/16/17, to 74 as of 03/22/17. Min - mod A transfers, low endurance. Needs cueing to initiate. RUE movement returning distal > proximal. Assist for bra, o/w set-up /cues UB dressing, min A LB. Tub t'reynaldo min A, bathing CGA. Ambulation 150' FWW CGA. Physical and occupational therapies to optimize mobility and activities of daily living. * Cognitive impairment. Reduced comprehension, expression, orientation and memory, all improving. 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 * Dysphagia. Advanced to DD2 after VFSS 03/14/17, but still on NTL. Advanced to DD3 03/22/17, and trials of thins but continues NTL. Water protocol. 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 * Edema. Due to DVTs +/- contribution of pulmonary HTN. Continue compression stockings. Weight stable as of 03/26/17 with furosemide 20 mg QD; had extra dose yesterday and BMP wnl today 03/26/17. Increase furosemide to 40 mg QD starting 03/26/17. Continue daily weights. * Bilateral pulmonary emboli. On admission 03/06/17 she was 11 days out from her hemorrhagic transformation, and would benefit from anticoagulation. This was discussed with neurologist, Dr. Fine, who was in support of providing anticoagulation. Discussed with her daughter. AHA guideline recommends full anticoagulation if AFib at 2 weeks s/p hemorrhagic transformation, which would be 03/09/17. Increased enoxaparin to treatment dose and initiated warfarin ; pharmacy to dose. * DVTs, extensive, bilateral, on US 03/09/17. Continue anticoagulation.. * R leg pain. Due to DVT vs increased activity. Responded to ice. Continue to monitor. * Hypertension. BP running low. Reduced lisinopril from 20 mg QD to 10 mg QD starting 03/14/17. D/C'd 03/15/17 . Observe for elevated BP. * Dehydration with elevated BUN/cr ratio, concentrated urine, low PO intake (25 - 50%) and low urine output. Hydrated IV 03/08 - 03/09/17 with NS 1000 cc at 75 cc /hr. D/C PICC 03/21/17 as she's taking adequate PO hydration. Director Of Instructional Technology following. Chronic/stable conditions: * Dyslipidemia. Continue atorvastatin. * Constipation. Responding to bowel protocol. * Lucio catheter, D/C'd 03/08/17. Voiding well. * Likely sleep apnea with crowded airway and history of snoring, and witnessed apneas. Daughter reports that she needs to sleep propped up, and this will be done. She was advised to have a sleep study after discharge, and can consider CPAP or other treatments. * Likely coronary artery disease, with lateral T-wave inversions on EKG at [facility], and an elevated troponin. She has been prescribed aspirin, which will be continued along with blood pressure and lipid medications. Copy of [facility] EKG reviewed, in paper chart. * Loss of teeth due to recent dental extraction. She may continue to need a soft diet even as her swallowing improves. * Obesity. She will have a dietary consult. It would be in her best interest to be able to lose weight. Lives in ranch home with dtr & grdtr, 5 AUGUST. D/W Dr. Spears, senior medical transcriptionist for her insurance. Agreed to discharge goal of 03/30/17. Follow-up D/W [facility] for Neurosurgery Dr. Odell. As she's doing well and functionally improving, no need to follow-up. 03/26/17 11:30 Subjective: No complaints. Not sure she's noticed effect of extra furosemide dose yesterday. Has improved movement R hand. Objective: Vital Signs Temp Pulse Resp BP Pulse Ox 36.6 C 72 16 114/65 93 03/26/17 05:34 03/26/17 05:34 03/26/17 05:34 03/26/17 05:34 03/26/17 05:34 Laboratory Results 03/09/17 11:35 03/26/17 06:00 03/25/17 03/26/17 03/27/17 05:59 05:59 05:59 Intake Total 950 1260 236 Output Total 150 500 100 Balance 800 760 136 PT 25.9 SEC (12.0-15.0) H 03/25/17 06:00 INR 2.34 (0.83-1.16) H 03/25/17 06:00 Physical Exam - Physical Exam General Appearance: WD/WN, alert, no apparent distress, obese Respiratory: normal breath sounds, No crackles, No rhonchi, No wheezing Cardiac/Chest: regular rate, rhythm, edema (2+ B LE) Skin: normal color, warm/dry Neuro/Psych: alert, normal mood/affect, oriented x 3, motor weakness (Beginning to have pinch athletic gear custodian R hand, with wrsit supported by OT.) ICD10 Worksheet Patient Problems: Problems Problem Status Onset CVA (cerebral vascular accident) Acute
[2017-03-26] MEDS: WARFARIN SODIUM 5 MG TAB PO SCH (15:45)
[2017-03-26] MEDS: ATORVASTATIN CALCIUM 40 MG TAB PO SCH (21:22)
[2017-03-27] MEDS: ASPIRIN 81 MG CHEWABLE TAB PO SCH (08:29)
[2017-03-27] MEDS: FUROSEMIDE 20 MG TAB PO SCH (08:30)
[2017-03-27] MEDS: POLYETHYLENE GLYCOL 3350 17 GM PKT PO SCH (08:30)
[2017-03-27] MEDS: MAGNESIUM OXIDE 400 MG TAB PO SCH (08:30)
--- NOTE | 2017-03-27 12:36 | SOAPPROG ---
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 Initial FIM 39 on 03/12/17; gain to 56 on 03/16/17, to 74 as of 03/22/17. Min - mod A transfers, low endurance. Needs cueing to initiate. RUE movement returning distal > proximal. Assist for bra, o/w set-up /cues UB dressing, min A LB. Tub t'reynaldo min A, bathing CGA. Ambulation 150' FWW CGA. Physical and occupational therapies to optimize mobility and activities of daily living. * Cognitive impairment. Reduced comprehension, expression, orientation and memory, all improving. Continue TIMING ADJUSTER. * Dysphagia. Advanced to DD2 after VFSS 03/14/17, but still on NTL. Advanced to DD3 03/22/17, and trials of thins but continues NTL. Water protocol. Continue TIMING ADJUSTER. * Edema. Due to DVTs +/- contribution of pulmonary HTN. Continue compression stockings. Weight stable as of 03/26/17 with furosemide 20 mg QD; had extra dose yesterday and BMP wnl today 03/26/17. Increase furosemide to 40 mg QD starting 03/26/17. Weight now responding as of 03/27/17 and +/- improved on exam. Low BP not symptomatic. Continue furosemide at 40 mg QD and daily weights. * Bilateral pulmonary emboli. On admission 03/06/17 she was 11 days out from her hemorrhagic transformation, and would benefit from anticoagulation. This was discussed with neurologist, Dr. Fine, who was in support of providing anticoagulation. Discussed with her daughter. AHA guideline recommends full anticoagulation if AFib at 2 weeks s/p hemorrhagic transformation, which would be 03/09/17. Increased enoxaparin to treatment dose and initiated warfarin ; pharmacy to dose. * DVTs, extensive, bilateral, on US 03/09/17. Continue anticoagulation.. * R leg pain. Due to DVT vs increased activity. Responded to ice. Continue to monitor. * Hypertension. BP running low. Reduced lisinopril from 20 mg QD to 10 mg QD starting 03/14/17. D/C'd 03/15/17 . Observe for elevated BP. * Dehydration with elevated BUN/cr ratio, concentrated urine, low PO intake (25 - 50%) and low urine output. Hydrated IV 03/08 - 03/09/17 with NS 1000 cc at 75 cc /hr. D/C PICC 03/21/17 as she's taking adequate PO hydration. Manager Search following. Chronic/stable conditions: * Dyslipidemia. Continue atorvastatin. * Constipation. Responding to bowel protocol. * Lucio catheter, D/C'd 03/08/17. Voiding well. * Likely sleep apnea with crowded airway and history of snoring, and witnessed apneas. Daughter reports that she needs to sleep propped up, and this will be done. She was advised to have a sleep study after discharge, and can consider CPAP or other treatments. * Likely coronary artery disease, with lateral T-wave inversions on EKG at [facility], and an elevated troponin. She has been prescribed aspirin, which will be continued along with blood pressure and lipid medications. Copy of [facility] EKG reviewed, in paper chart. * Loss of teeth due to recent dental extraction. She may continue to need a soft diet even as her swallowing improves. * Obesity. She will have a dietary consult. It would be in her best interest to be able to lose weight. Lives in ranch home with dtr & grdtr, 5 AUGUST. D/W Dr. Spears, medical numerical control operator for her insurance. Agreed to discharge goal of 03/30/17. Follow-up D/W [facility] for Neurosurgery Dr. Odell. As she's doing well and functionally improving, no need to follow-up. 03/27/17 12:34 Subjective: No complaints. Denies cough, dyspnea, f/c. No lightheadedness. Objective: Vital Signs Temp Pulse Resp BP Pulse Ox 36.6 C 76 16 98/52 L 90 L 03/27/17 08:00 03/27/17 08:00 03/27/17 08:00 03/27/17 08:00 03/27/17 08:00 Laboratory Results 03/09/17 11:35 03/26/17 06:00 03/26/17 03/27/17 03/28/17 05:59 05:59 05:59 Intake Total 1260 1172 354 Output Total 500 400 Balance 760 772 354 PT 25.9 SEC (12.0-15.0) H 03/25/17 06:00 INR 2.34 (0.83-1.16) H 03/25/17 06:00 Physical Exam - Physical Exam General Appearance: WD/WN, alert, no apparent distress, obese Respiratory: No respiratory distress, No accessory muscle use Cardiac/Chest: edema (2+ B LE, improved from yesterday), No JVD Skin: normal color, warm/dry Neuro/Psych: alert, normal mood/affect, motor weakness (demonstrates some movement R hand.) ICD10 Worksheet Patient Problems: Problems Problem Status Onset CVA (cerebral vascular accident) Acute
[2017-03-27] MEDS: WARFARIN SODIUM 5 MG TAB PO SCH (16:08)
[2017-03-27] MEDS: ATORVASTATIN CALCIUM 40 MG TAB PO SCH (21:24)
[2017-03-28] MEDS: ASPIRIN 81 MG CHEWABLE TAB PO SCH (08:17)
[2017-03-28] MEDS: POLYETHYLENE GLYCOL 3350 17 GM PKT PO SCH (08:17)
[2017-03-28] MEDS: FUROSEMIDE 20 MG TAB PO SCH (08:18)
[2017-03-28] MEDS: MAGNESIUM OXIDE 400 MG TAB PO SCH (08:19)
--- NOTE | 2017-03-28 10:19 | SOAPPROG ---
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 Initial FIM 39 on 03/12/17; gain to 56 on 03/16/17, to 74 as of 03/22/17, 79 as of 03/29/17. Assist for bra, o/w set-up/cues UB dressing, min A LB. Tub t'reynaldo min A, bathing SBA. Ambulation 200' FWW SBA. Needs more assistance at night to transfer to commode and with kenzie care and clothing management. Physical and occupational therapies to optimize mobility and activities of daily living. * Cognitive impairment. Improving. Still with reduced memory for new learning , and word-finding deficit. Continue MANAGER CONTRACTING. * Dysphagia. Advanced to DD2 after VFSS 03/14/17, but still on NTL. Advanced to DD3 03/22/17, and trials of thins but continues NTL. Advanced to regular diet thin liquids 03/28/17. Continue MANAGER CONTRACTING. * Edema. Due to DVTs +/- contribution of pulmonary HTN. Continue compression stockings. Weight stable as of 03/26/17 with furosemide 20 mg QD; had extra dose yesterday and BMP wnl today 03/26/17. Increase furosemide to 40 mg QD starting 03/26/17. Weight now responding as of 03/27/17 and +/- improved on exam. Low BP not symptomatic. Continue furosemide at 40 mg QD and daily weights. * Bilateral pulmonary emboli. On admission 03/06/17 she was 11 days out from her hemorrhagic transformation, and would benefit from anticoagulation. This was discussed with neurologist, Dr. Fine, who was in support of providing anticoagulation. Discussed with her daughter. AHA guideline recommends full anticoagulation if AFib at 2 weeks s/p hemorrhagic transformation, which would be 03/09/17. Increased enoxaparin to treatment dose and initiated warfarin ; pharmacy to dose. * DVTs, extensive, bilateral, on US 03/09/17. Continue anticoagulation.. * R leg pain. Due to DVT vs increased activity. Responded to ice. Continue to monitor. * Hypertension. BP running low. Reduced lisinopril from 20 mg QD to 10 mg QD starting 03/14/17. D/C'd 03/15/17 . Observe for elevated BP. * Dehydration, resolved on BMP 03/26/17. Had elevated BUN/cr ratio, concentrated urine, low PO intake (25 - 50%) and low urine output. Hydrated IV - 03/09/17 with NS 1000 cc at 75 cc/hr. D/C PICC 03/21/17 as she's taking adequate PO hydration. Transmission And Protection Engineer following. Chronic/stable conditions: * Dyslipidemia. Continue atorvastatin. * Constipation. Responding to bowel protocol. * Lucio catheter, D/C'd 03/08/17. Voiding well. * Likely sleep apnea with crowded airway and history of snoring, and witnessed apneas. Daughter reports that she needs to sleep propped up, and this will be done. She was advised to have a sleep study after discharge, and can consider CPAP or other treatments. * Likely coronary artery disease, with lateral T-wave inversions on EKG at [facility], and an elevated troponin. She has been prescribed aspirin, which will be continued along with blood pressure and lipid medications. Copy of [facility] EKG reviewed, in paper chart. * Loss of teeth due to recent dental extraction. She may continue to need a soft diet even as her swallowing improves. * Obesity. She will have a dietary consult. It would be in her best interest to be able to lose weight. Attended staffing, 15 min. D/W case mgmt, milliner helper, nursing, PT, OT, MANAGER CONTRACTING. Attended family meeting, daughter and patient present. Lives in ranch home with dtr & grdtr, 5 AUGUST. Continue discharge goal of 03/30/17. Follow-up PCP, interventional radiology re IVC filter, cardiology re PFO. sleep medicine re possible AGUS. 03/28/17 12:14 Subjective: No complaints. Notes leg swelling is improving. Not in pain, no f/c, cough/ dyspnea. Objective: Vital Signs Temp Pulse Resp BP Pulse Ox 36.8 C 58 L 18 111/62 94 03/28/17 06:45 03/28/17 06:45 03/28/17 06:45 03/28/17 06:45 03/28/17 09:29 Laboratory Results 03/09/17 11:35 03/26/17 06:00 03/27/17 03/28/17 03/29/17 05:59 05:59 05:59 Intake Total 1172 892 200 Output Total 400 Balance 772 892 200 PT 25.9 SEC (12.0-15.0) H 03/25/17 06:00 INR 2.34 (0.83-1.16) H 03/25/17 06:00 - Time Spent With Patient Time Spent With Patient: Greater that 35 minutes floor time today, including more than 50% of time in coordination of care during staffing meeting, and counseling during family meeting. Physical Exam - Physical Exam General Appearance: WD/WN, alert, no apparent distress, obese Respiratory: normal breath sounds, No crackles, No rhonchi, No wheezing Cardiac/Chest: regular rate, rhythm, edema (2+ B LE) Skin: normal color, warm/dry Neuro/Psych: alert, normal mood/affect ICD10 Worksheet Patient Problems: Problems Problem Status Onset CVA (cerebral vascular accident) Acute
[2017-03-28] MEDS: WARFARIN SODIUM 5 MG TAB PO SCH (16:35)
[2017-03-28] MEDS: ATORVASTATIN CALCIUM 40 MG TAB PO SCH (20:24)
[2017-03-29] MEDS: FUROSEMIDE 20 MG TAB PO SCH (09:35)
[2017-03-29] MEDS: ASPIRIN 81 MG CHEWABLE TAB PO SCH (09:35)
[2017-03-29] MEDS: MAGNESIUM OXIDE 400 MG TAB PO SCH (09:35)
[2017-03-29] MEDS: POLYETHYLENE GLYCOL 3350 17 GM PKT PO SCH (09:35)
--- NOTE | 2017-03-29 09:43 | PDOREHIP ---
Admission [facility] - Admission - 3 Day Assessment Period Admission Date/Day 1: 03/06/17 Day 2: 03/07/17 Day 3: 03/08/17 Discharge [facility] - Discharge - 3 Day Assessment Period 2 Days Prior to Anticipated Discharge Date: 03/28/17 1 Day Prior to Anticipated Discharge Date: 03/29/17 Anticipated Discharge Date: 03/30/17 - Discharge Skin Conditions Unhealed Pressure Ulcer (1 or more/Stage 1 or >)-Discharge: 0. No
[2017-03-29 10:44] LABS: INR 2.31 (0.83-1.16); PROTIME(PATIENT) 25.6 SEC (12.0-15.0)
--- NOTE | 2017-03-29 11:38 | SOAPPROG ---
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 A total of 35 minutes was spent on the patient's care today. The majority of adjustment in the counseling and coordination of care regarding discharge planning and fluid management. Patient appears to still be a bit fluid overload, steadily diary sing having lost 2 kg over the past four days at the present dose of Lasix. Plan to continue and revisit as outpatient with primary care. Also, plan will be for INR to be followed by her primary care physician. remainder plan below is unchanged. 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 Initial FIM 39 on 03/12/17; gain to 56 on 03/16/17, to 74 as of 03/22/17, 79 as of 03/29/17. Assist for bra, o/w set-up/cues UB dressing, min A LB. Tub t'reynaldo min A, bathing SBA. Ambulation 200' FWW SBA. Needs more assistance at night to transfer to commode and with kenzie care and clothing management. Physical and occupational therapies to optimize mobility and activities of daily living. * Cognitive impairment. Improving. Still with reduced memory for new learning , and word-finding deficit. Continue TURF MANAGER. * Dysphagia. Advanced to DD2 after VFSS 03/14/17, but still on NTL. Advanced to DD3 03/22/17, and trials of thins but continues NTL. Advanced to regular diet thin liquids 03/28/17. Continue TURF MANAGER. * Edema. Due to DVTs +/- contribution of pulmonary HTN. Continue compression stockings. Weight stable as of 03/26/17 with furosemide 20 mg QD; had extra dose yesterday and BMP wnl today 03/26/17. Increase furosemide to 40 mg QD starting 03/26/17. Weight now responding as of 03/27/17 and +/- improved on exam. Low BP not symptomatic. Continue furosemide at 40 mg QD and daily weights , Steadily diuresing but still has fluid overload. Continue gentle diuresis. * Bilateral pulmonary emboli. On admission 03/06/17 she was 11 days out from her hemorrhagic transformation, and would benefit from anticoagulation. This was discussed with neurologist, Dr. Fine, who was in support of providing anticoagulation. Discussed with her daughter. AHA guideline recommends full anticoagulation if AFib at 2 weeks s/p hemorrhagic transformation, which would be 03/09/17. Increased enoxaparin to treatment dose and initiated warfarin ; pharmacy to dose. * DVTs, extensive, bilateral, on US 03/09/17. Continue anticoagulation.. * R leg pain. Due to DVT vs increased activity. Responded to ice. Continue to monitor. * Hypertension. BP running low. Reduced lisinopril from 20 mg QD to 10 mg QD starting 03/14/17. D/C'd 03/15/17 . Observe for elevated BP. * Dehydration, resolved on BMP 03/26/17. Had elevated BUN/cr ratio, concentrated urine, low PO intake (25 - 50%) and low urine output. Hydrated IV - 03/09/17 with NS 1000 cc at 75 cc/hr. D/C PICC 03/21/17 as she's taking adequate PO hydration. Show Host/Hostess following. Chronic/stable conditions: * Dyslipidemia. Continue atorvastatin. * Constipation. Responding to bowel protocol. * Lucio catheter, D/C'd 03/08/17. Voiding well. * Likely sleep apnea with crowded airway and history of snoring, and witnessed apneas. Daughter reports that she needs to sleep propped up, and this will be done. She was advised to have a sleep study after discharge, and can consider CPAP or other treatments. * Likely coronary artery disease, with lateral T-wave inversions on EKG at [facility], and an elevated troponin. She has been prescribed aspirin, which will be continued along with blood pressure and lipid medications. Copy of [facility] EKG reviewed, in paper chart. * Loss of teeth due to recent dental extraction. She may continue to need a soft diet even as her swallowing improves. * Obesity. She will have a dietary consult. It would be in her best interest to be able to lose weight. Lives in ranch home with dtr & grdtr, 5 AUGUST. Continue discharge goal of . Follow-up PCP, interventional radiology re IVC filter, cardiology re PFO. sleep medicine re possible AGUS. 03/15/17 10:22 03/29/17 11:34 Subjective: CC: discharge planning and fluid status No acute events overnight. Patient endorses that she is sleeping well, therapy is going well. She is anticipating discharge tomorrow. Still notes that she has some swelling in her lower legs, no shortness of breath, chest pain, new numbness, tingling, or weakness. No bleeding. Plan is to discharge home with home healthcare and assistance from family. Otherwise she does not have any concerns today. Objective: Vital Signs Temp Pulse Resp BP Pulse Ox 36.5 C 67 16 111/70 91 L 03/29/17 06:43 03/29/17 06:43 03/29/17 06:43 03/29/17 06:43 03/29/17 09:40 Laboratory Results 03/09/17 11:35 03/26/17 06:00 03/28/17 03/29/17 03/30/17 05:59 05:59 05:59 Intake Total 892 636 240 Output Total 500 Balance 892 136 240 PT 25.6 SEC (12.0-15.0) H 03/29/17 06:00 INR 2.31 (0.83-1.16) H 03/29/17 06:00 Physical Exam - Physical Exam General Appearance: WD/WN, alert, no apparent distress Respiratory: lungs clear, rales, No respiratory distress, No accessory muscle use, No rhonchi Cardiac/Chest: regular rate, rhythm, edema (bilateral 2+ legs) Skin: normal color, warm/dry, No cyanosis Neuro/Psych: alert, normal mood/affect, motor weakness ( Right upper limb with 4 /5 biceps, less than three shoulder flexion and abduction, 4/5 triceps, three wrist extension, finger flexion. 5/5 right knee extension) ICD10 Worksheet Patient Problems: Problems Problem Status Onset CVA (cerebral vascular accident) Acute
--- NOTE | 2017-03-29 16:27 | PDDCSUM ---
Discharge Summary Discharge Summary: Name: Xi Ann Admission date: 03/06/2017 Discharge date: 03/30/2017 anticipated Discharging physician: Jorge L Rosas MD Admitting diagnosis: stroke with right body involvement, left brain. Discharge diagnosis: same Comorbid diagnoses: dysphagia, upper and lower limb weakness, impaired mobility , impaired self-care, impaired cognition, lower extremity edema, deep vein thrombosis, bilateral pulmonary emboli, hypertension, dehydration, dyslipidemia , constipation, Lucio catheter, possible sleep apnea, possible coronary artery disease, poor dentition, obesity Consultations: physical therapy, occupational therapy, speech language pathology Procedures: video fluoroscopic swallow study 03/14/2017, mild to moderate oral and pharyngeal dysphagia, no aspiration or penetration. Bilateral lower extremity venous Doppler study, 03/09/2017, extensive bilateral lower extremity DVT extending from the common femoral veins through the calf veins. Reason for admission: please see the history and physical by Dr. Chin dated for full details, but briefly this is a 66-year-old female who suffered an embolic stroke on 02/23/2017 involving the left basal ganglia with hemorrhagic conversion status post TPA thrombolysis. She was also noted to have a patent foramen ovale in an incidental finding of bilateral pulmonary emboli. She was originally treated at [facility]. She was not a surgical candidate at any point. She was started on atorvastatin and aspirin, and was purchased [employer] and stable for inpatient rehabilitation. She had a venous CT angiogram of the abdomen which showed no thrombosis, but it did reveal pilmonary emboli bilaterally in the lungs, and an IVC filter was placed. She transferred to [facility] for inpatient rehabilitation on 03/06/2017. Rehabilitation course: overall she made good functional progress. She was initially admitted with a functional independence measure of 39, and improved to 79 just before discharge. She was needing some assistance with upper body dressing and lower body dressing, some assistance with transferring and bathing as well. She was ambulating 200 feet with a front wheel walker and standby assistance. She continued to have some impaired cognition that improved, still had difficulty with memory and word finding deficits. Dysphagia resolved. Medically, she did have some edema and was diarist with furosemide at 40 mg daily, at a higher dose than her baseline of 20 mg daily. She is been steadily losing weight throughout the last few days, discharge weight was close to 98.3 kg, down from 100.3 kg four days prior. She should continue diuresis and follow up with her primary care physician within the week to adjust. She continues on anticoagulation for treatment of her bilateral pulmonary emboli and she was diagnosed with extensive DVTs on ultrasound on and should continue anticoagulation for this as well.017, she had some right leg pain fought due to the DVT, manage symptomatically. Regarding her blood pressure, her lisinopril was reduced from her home medication and eventually stopped. She has been hypotensive, mildly, may restart lisinopril if needed. Additionally it's possible that she has sleep apnea with witness to events, and she will need a sleep study after discharge. Additionally she had an ECG with lateral T-wave inversions at [facility] and elevated troponin and likely has coronary artery disease. She will be on aspirin, blood pressure management, and lipid medications, may follow up with her primary care physician. Discharge plan: she will be discharging home with assistance from her family as well as home health therapies. Her activities have been outlined in detail by the therapist, but briefly she needs assistance with ADLs, ambulation with a front wheel walker and standby assistance, as well as management of medications. She's on a regular diet, thin liquids. She will need follow-up with Dr. Hernandez in one week, sleep center in one week, Dr. Tristan Odell in 10 days , and Dr. Shah in one week. Her INR on 03/29/2017 was 2.31, K was 3.9 and stable as of 03/30, and this will need to be followed within a few days from discharge, will be managed by her primary care physician and anticoagulation service. Specifically, she will need follow-up for removal of her IVC filter as well. Medications at discharge: furosemide 40 mg daily warfarin 5 mg daily aspirin 81 mg PO daily atorvastatin 40 mg PO QHS magnesium oxide 400 mg daily Issues to be addressed at follow-up: As mentioned earlier, she will need her INR followed within a few days of discharge, IVC filter follow-up for removal, sleep study, follow-up PT, OT, speech, as well as nursing for INR draws. She will need follow-up with her primary care physician within a week to address her diuresis. Note: The above note was reviewed and updated on the day of discharge. I spoke with her, answered any questions, verify that there was no change in her clinical status on the day of discharge.
[2017-03-29] MEDS: WARFARIN SODIUM 5 MG TAB PO SCH (16:45)
[2017-03-29 20:00] VITALS: RESP 18
[2017-03-29] MEDS: ATORVASTATIN CALCIUM 40 MG TAB PO SCH (20:59)
[2017-03-29 23:51] VITALS: O2SAT 93
[2017-03-30 06:24] VITALS: BP 105/75; PULSE 75; TEMP 97.9
[2017-03-30 08:16] LABS: ANION GAP 10 mEq/L (8-16); CALCIUM 9.4 mg/dL (8.5-10.4); CARBON DIOXIDE 27 mEq/l (22-31); CHLORIDE 103 mEq/L (97-110); CREATININE 0.5 mg/dL (0.6-1.0); GLOMERULAR FILTRATION RATE > 60; GLUCOSE 82 mg/dL (70-100); POTASSIUM 3.9 mEq/L (3.5-5.2); SODIUM 140 mEq/L (134-144)
[2017-03-30] MEDS: FUROSEMIDE 20 MG TAB PO SCH (09:17)
[2017-03-30] MEDS: ASPIRIN 81 MG CHEWABLE TAB PO SCH (09:17)
[2017-03-30] MEDS: MAGNESIUM OXIDE 400 MG TAB PO SCH (09:17)
[2017-03-30] MEDS: POLYETHYLENE GLYCOL 3350 17 GM PKT PO SCH (09:17)
== END 2017-03-30 13:40 | disposition home health service (06) | DRG 56 ==
LOC: BREH 16:56
PROVIDERS: ADMIT Internal Medicine; ATTEND Internal Medicine
PROC: F08Z7ZZ Vocational Activities and Functional Community or Work Reintegration Skills Treatment (ICD-10-PCS; principal; 2017-03-06)
PROC: F07M3ZZ Motor Function Treatment of Musculoskeletal System - Whole Body (ICD-10-PCS; principal; 2017-03-06)
PROC: F0636ZZ Communicative/Cognitive Integration Skills Treatment of Neurological System - Whole Body (ICD-10-PCS; principal; 2017-03-06)
DX: I69.154 Hemiplegia and hemiparesis following nontraumatic intracerebral hemorrhage affecting left non-dominant side (principal); I69.191 Dysphagia following nontraumatic intracerebral hemorrhage; Q21.1 Atrial septal defect; I27.2 Other secondary pulmonary hypertension; I26.99 Other pulmonary embolism without acute cor pulmonale; E78.5 Hyperlipidemia, unspecified; E86.0 Dehydration; G47.30 Sleep apnea, unspecified; K59.00 Constipation, unspecified; E66.9 Obesity, unspecified; Z68.35 Body mass index [BMI] 35.0-35.9, adult; I25.10 Atherosclerotic heart disease of native coronary artery without angina pectoris
CPT/HCPCS: 92507-GN; 92522-GN; 92526-GN; 92610-GN; 92611-GN; 97110-GO; 97110-GP; 97112-GO; 97112-GP; 97116-GP; 97162-GP; 97166-GO; 97530-GO; 97530-GP; 97535-GO; 99366-GO; 99368-GO; J1650; J2997